=== PATIENT | male | born 1935 | race African-American/Black ===

== ENCOUNTER 2017-08-30 13:24 | Observation (INO) | payer OTHER ==
--- NOTE | 2017-08-30 14:26 | PDOC ---
History of Present Illness - General Chief Complaint: Syncope/Near Syncope Stated Complaint: SYNCOPE Time Seen by Provider: 08/30/17 13:49 - History of Present Illness Initial Comments: 08/30/17 14:19 81 M with seizure disorder (pt cannot recall what his other medical problems are but states that he had a pacemaker placed 5 months ago), presents to ER with syncopal episode. Pt was at [employer]undromat putting his clothes in a washer when he lost consciousness. He has no recollection of the event but states that the next thing he knows, he's waking up with EMS attending to him. He denies having any CP/SOB/palpitations prior to the event. Had no lightheadedness. When he awoke, he states that he felt like his normal self. Denies any period of confusion. Denies tongue biting, denies incontinence. Denies SANTIAGO/N/V. Denies neck pain. Denies weakness/numbness/tingling. Denies F/C. Past History - Past Medical History Allergies/Adverse Reactions: Allergies Allergy/AdvReac Type Severity Reaction Status Date / Time No Known Allergies Allergy Verified 08/30/17 13:52 Home Medications: Ambulatory Orders Tamsulosin HCl [Flomax] 0.4 mg PO DAILY 08/30/17 Aspirin Coated [Ecotrin -] 81 mg PO DAILY tablet.ec 09/02/17 Finasteride [Proscar] 5 mg PO DAILY #30 tablet 09/02/17 Phenytoin Na Extended [Dilantin -] 100 mg PO TID #100 capsule 09/02/17 Rosuvastatin [Crestor -] 20 mg PO HS #30 tablet 09/02/17 CVA: No COPD: No Seizures: Yes - Suicide/Smoking/Psychosocial Hx Smoking History: Never smoked Review of Systems - Review of Systems Comments:: 08/30/17 14:22 "GENERAL/CONSTITUTIONAL: No fever or chills. No weakness. HEAD, EYES, EARS, NOSE AND THROAT: No change in vision. No ear pain or discharge. No sore throat. CARDIOVASCULAR: No chest pain or shortness of breath. RESPIRATORY: No cough, wheezing, or hemoptysis. GASTROINTESTINAL: No nausea, vomiting, diarrhea or constipation. GENITOURINARY: No dysuria, frequency, or change in urination. MUSCULOSKELETAL: No joint or muscle swelling or pain. No neck or back pain. SKIN: No rash NEUROLOGIC: +LOC, No headache, vertigo, or change in strength/sensation. ENDOCRINE: No increased thirst. No abnormal weight change. HEMATOLOGIC/LYMPHATIC: No anemia, easy bleeding, or history of blood clots. ALLERGIC/IMMUNOLOGIC: No hives or skin allergy. " *Physical Exam - Vital Signs Last Vital Signs Temp Pulse Resp BP Pulse Ox 98.1 F 67 22 101/63 98 09/02/17 10:00 09/02/17 10:00 09/02/17 13:00 09/02/17 10:00 09/02/17 13:00 - Physical Exam Comments: 08/30/17 14:22 "GENERAL: Awake, alert, and fully oriented, in no acute distress HEAD: No signs of trauma EYES: PERRLA, EOMI, sclera anicteric, conjunctiva clear ENT: Auricles normal inspection, hearing grossly normal, nares patent, oropharynx clear without exudates. Moist mucosa NECK: Nontender, no stepoffs, Normal ROM, supple, no lymphadenopathy, JVD, or masses LUNGS: Breath sounds equal, clear to auscultation bilaterally. No wheezes, and no crackles HEART: Regular rate and rhythm, normal S1 and S2, no murmurs, rubs or gallops ABDOMEN: Soft, nontender, normoactive bowel sounds. No guarding, no rebound. No masses EXTREMITIES: Normal range of motion, no edema. No clubbing or cyanosis. No cords, erythema, or tenderness NEUROLOGICAL: Cranial nerves II through XII intact. 5/5 strength and sensation in all extremities, Normal speech, normal gait SKIN: Warm, Dry, normal turgor, no rashes or lesions noted. " ED Treatment Course - LABORATORY CBC & Chemistry Diagram: 09/02/17 06:00 09/02/17 06:00 - ADDITIONAL ORDERS Additional order review: 08/30/17 14:20 RBC 4.32 MCV 95.6 MCHC 32.4 RDW 14.3 MPV 7.7 Neutrophils % 59.0 Lymphocytes % 27.2 Monocytes % 12.4 H Eosinophils % 1.0 Basophils % 0.4 - RADIOLOGY Radiology Studies Ordered: Category Date Time Status HEAD CT WITHOUT CONTRAST [CT] Stat CT Scan 08/30/17 14:18 Completed CHEST PA & LAT [RAD] Stat Radiology 08/30/17 14:18 Completed - Medications Given in the ED: ED Medications Discontinued Medications Generic Name Dose Route Start Last Admin Trade Name Moon PRN Reason Stop Dose Admin Acetaminophen 650 mg 08/30/17 17:47 08/30/17 17:59 Tylenol - PO 08/30/17 17:48 650 mg ONCE ONE Administration Aspirin 81 mg 09/01/17 10:00 09/02/17 09:51 Ecotrin - PO 81 mg DAILY JASON Administration Finasteride 5 mg 08/31/17 10:00 09/02/17 09:51 Proscar - PO 5 mg DAILY JASON Administration Phenytoin Sodium 100 mg 08/30/17 22:00 09/02/17 06:47 Dilantin - PO 100 mg TID JASON Administration Rosuvastatin Calcium 20 mg 08/31/17 22:00 09/01/17 21:56 Crestor - PO 20 mg HS JASON Administration Tamsulosin HCl 0.4 mg 08/31/17 08:30 09/02/17 09:51 Flomax - PO 0.4 mg DAILY@0830 JASON Administration Medical Decision Making - Medical Decision Making 08/30/17 14:22 81 M with syncopal episode. Concerning for cardiac syncope given recent PPM placement as well as sudden LOC without prodrome. Pt does have seizure history but no signs of seizure on exam. Neurologically non-focal at this time. - Labs, trop - EKG - CXR 08/30/17 17:29 CBC,CMP WBC 3.4 K/mm3 (4.0-10.0) L 08/30/17 14:20 RBC 4.32 M/mm3 (4.00-5.60) 08/30/17 14:20 Hgb 13.4 GM/dL (11.7-16.9) 08/30/17 14:20 Hct 41.2 % (35.4-49) 08/30/17 14:20 MCV 95.6 fl (80-96) 08/30/17 14:20 MCH 31.0 pg (25.7-33.7) 08/30/17 14:20 MCHC 32.4 g/dl (32.0-35.9) 08/30/17 14:20 RDW 14.3 % (11.9-15.9) 08/30/17 14:20 Plt Count 123 K/MM3 (134-434) L 08/30/17 14:20 MPV 7.7 fl (7.5-11.1) 08/30/17 14:20 Neutrophils % 59.0 % (42.8-82.8) 08/30/17 14:20 Lymphocytes % 27.2 % (8-40) 08/30/17 14:20 Monocytes % 12.4 % (3.8-10.2) H 08/30/17 14:20 Eosinophils % 1.0 % (0-4.5) 08/30/17 14:20 Basophils % 0.4 % (0-2.0) 08/30/17 14:20 Sodium 141 mmol/L (136-145) 08/30/17 14:20 Potassium 3.9 mmol/L (3.5-5.1) 08/30/17 14:20 Chloride 105 mmol/L (98-107) 08/30/17 14:20 Carbon Dioxide 28 mmol/L (21-32) 08/30/17 14:20 Anion Gap 8 (8-16) 08/30/17 14:20 BUN 15 mg/dL (7-18) 08/30/17 14:20 Creatinine 0.9 mg/dL (0.7-1.3) 08/30/17 14:20 Creat Clearance w eGFR > 60 (>60) 08/30/17 14:20 Random Glucose 104 mg/dL (74-106) 08/30/17 14:20 Calcium 8.6 mg/dL (8.5-10.1) 08/30/17 14:20 Total Bilirubin 0.3 mg/dL (0.2-1.0) 08/30/17 14:20 AST 14 U/L (15-37) L 08/30/17 14:20 ALT 18 U/L (12-78) 08/30/17 14:20 Alkaline Phosphatase 90 U/L (45-117) 08/30/17 14:20 Creatine Kinase 136 IU/L (39-308) 08/30/17 14:20 Troponin I < 0.02 ng/ml (0.00-0.05) 08/30/17 14:20 B-Natriuretic Peptide 648.07 pg/ml (5-450) H 08/30/17 14:20 Total Protein 7.4 g/dl (6.4-8.2) 08/30/17 14:20 Albumin 3.7 g/dl (3.4-5.0) 08/30/17 14:20 CXR clear CTH negative Will admit to tele obs for monitoring and pacemaker interrogation. Case discussed in detail with admitting physician including history, physical exam and ancillary studies. Admitting physician has assumed care for the patient and will follow all pending diagnostics and complete the evaluation and treatment. *DC/Admit/Observation/Transfer Diagnosis at time of Disposition: Syncope Qualifiers: Syncope type: unspecified Qualified Code(s): R55 - Syncope and collapse - Discharge Dispostion Disposition: HOME Condition at time of disposition: Improved Admit: Yes - Prescriptions - Referrals - Patient Instructions - Post Discharge Activity - Attestations Physician Attestion: 08/30/17 17:30 I, Dr. Kamar Murphy MD, attest that this document has been prepared under my direction and personally reviewed by me in its entirety. I further attest, that it accurately reflects all work, treatment, procedures and medical decision -making performed by me.
[2017-08-30 14:40] LABS: BASO % 0.4 % (0-2.0); MCHC 32.4 g/dl (32.0-35.9); MEAN CELL VOLUME 95.6 fl (80-96); MEAN PLT VOLUME 7.7 fl (7.5-11.1); PLATELET COUNT 123 K/MM3 (134-434); RDW 14.3 % (11.9-15.9); WHITE BLOOD COUNT 3.4 K/mm3 (4.0-10.0)
[2017-08-30 15:03] LABS: INR 1.06 (0.82-1.09)
[2017-08-30 15:06] LABS: ACTIVATED PTT 29.5 SECONDS (26.9-34.4)
[2017-08-30 15:18] LABS: CO2 28 mmol/L (21-32); CREATININE 0.9 mg/dL (0.7-1.3); GLUCOSE,RANDOM 104 mg/dL (74-106)
[2017-08-30 15:19] LABS: ALBUMIN 3.7 g/dl (3.4-5.0); ANION GAP 8 (8-16); BILIRUBIN,TOTAL 0.3 mg/dL (0.2-1.0); CALCIUM 8.6 mg/dL (8.5-10.1); SGOT/AST 14 U/L (15-37); SGPT/ALT 18 U/L (12-78); TOT PROT 7.4 g/dl (6.4-8.2)
[2017-08-30 15:21] LABS: ALK PHOS 90 U/L (45-117); CPK 136 IU/L (39-308); TROPONIN I < 0.02 ng/ml (0.00-0.05)
[2017-08-30] MEDS ORDERED: ACETAMINOPHEN 325 MG TABLET (FP) PO ONE (17:47)
[2017-08-30] MEDS ORDERED: ACETAMINOPHEN 325 MG TABLET (FP) ONE (17:55)
--- NOTE | 2017-08-30 21:23 | HP ---
CHIEF COMPLAINT: LOC PCP: in Bx HISTORY OF PRESENT ILLNESS: This is an 81 year old male with a past medical history of repeated episodes of syncope s/p PPM placement 3 months ago who presented to the ED s/p sudden LOC while doing his laundry. Pt denies any prodrome. Pt states that he was just doing his laundry and then he woke up on the floor with EMS surrounding him. He denies any palpitations, dizziness, chest pain. His daughter reports that he has had syncopal episodes approximately 3 times per year for the past 5 years and has been completely worked up many times at [facility]. 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 Hodges. He was placed on dilantin for suspicion of seizure disorder. He has not followed up with cardiology since his PPM was placed. ER course was notable for: (1) Trop 0.02 (2) BNP 648.07 Recent Travel: pt denies PAST MEDICAL HISTORY: seizure d/o? BPH syncope PAST SURGICAL HISTORY: PPM placement 3 months ago Social History: lives alone Smoking: pt denies Alcohol: pt denies Drugs: pt denies Family History: mother , HTN father and brother , h/o HTN, BPH Allergies No Known Allergies Allergy (Verified 08/30/17 13:52) HOME MEDICATIONS: 3 Medication Instructions Recorded Phenytoin Na Extended [Dilantin -] 200 mg PO TID 08/30/17 Tamsulosin HCl [Flomax] 0.4 mg PO DAILY 08/30/17 finasteride REVIEW OF SYSTEMS CONSTITUTIONAL: Absent: fever, chills, diaphoresis, generalized weakness, malaise, loss of appetite, weight change HEENT: Absent: rhinorrhea, nasal congestion, throat pain, throat swelling, difficulty swallowing, mouth swelling, ear pain, eye pain, visual changes CARDIOVASCULAR: Absent: chest pain, syncope, palpitations, irregular heart rate, lightheadedness , peripheral edema RESPIRATORY: Absent: cough, shortness of breath, dyspnea with exertion, orthopnea, wheezing, stridor, hemoptysis GASTROINTESTINAL: Absent: abdominal pain, abdominal distension, nausea, vomiting, diarrhea, constipation, melena, hematochezia GENITOURINARY: Absent: dysuria, frequency, urgency, hesitancy, hematuria, flank pain, genital pain MUSCULOSKELETAL: Absent: myalgia, arthralgia, joint swelling, back pain, neck pain SKIN: Absent: rash, itching, pallor HEMATOLOGIC/IMMUNOLOGIC: Absent: easy bleeding, easy bruising, lymphadenopathy, frequent infections ENDOCRINE: Absent: unexplained weight gain, unexplained weight loss, heat intolerance, cold intolerance NEUROLOGIC: Present: LOC Absent: headache, focal weakness or paresthesias, dizziness, unsteady gait, seizure, mental status changes, bladder or bowel incontinence PSYCHIATRIC: Absent: anxiety, depression, suicidal or homicidal ideation, hallucinations. PHYSICAL EXAMINATION Vital Signs - 24 hr 3 08/30/17 08/30/17 08/30/17 08/30/17 13:54 17:48 17:49 19:33 Temperature 98.1 F 98.3 F Pulse Rate 61 Pulse Rate [ 62 60 Apical] Respiratory 20 20 20 Rate Blood Pressure 151/102 Blood Pressure 131/88 125/81 [Left Arm] O2 Sat by Pulse 100 100 100 99 Oximetry (%) GENERAL: Awake, alert, and fully oriented, in no acute distress. HEAD: Normal with no signs of trauma. EYES: Pupils equal, round and reactive to light, extraocular movements intact, sclera anicteric, conjunctiva clear. No lid lag. EARS, NOSE, THROAT: Ears normal, nares patent, oropharynx clear without exudates. Moist mucous membranes. NECK: Normal range of motion, supple without lymphadenopathy, JVD, or masses. LUNGS: Breath sounds equal, clear to auscultation bilaterally. No wheezes, and no crackles. No accessory muscle use. HEART: Regular rate and rhythm, normal S1 and S2 + murmur, rub or gallop. ABDOMEN: Soft, nontender, not distended, normoactive bowel sounds, no guarding, no rebound, no masses. No hepatomegaly or splenomegaly. MUSCULOSKELETAL: Normal range of motion at all joints. No bony deformities or tenderness. No CVA tenderness. UPPER EXTREMITIES: 2+ pulses, warm, well-perfused. No cyanosis. No clubbing. No peripheral edema. LOWER EXTREMITIES: 2+ pulses, warm, well-perfused. No calf tenderness. No peripheral edema. NEUROLOGICAL: Cranial nerves II-XII intact. Normal speech. Normal gait. PSYCHIATRIC: Cooperative. Good eye contact. Appropriate mood and affect. SKIN: Warm, dry, normal turgor, no rashes or lesions noted, normal capillary refill. Laboratory Results - last 24 hr 3 08/30/17 08/30/17 08/30/17 14:20 14:20 14:20 WBC 3.4 L RBC 4.32 Hgb 13.4 Hct 41.2 MCV 95.6 MCH 31.0 MCHC 32.4 RDW 14.3 Plt Count 123 L MPV 7.7 Neutrophils % 59.0 Lymphocytes % 27.2 Monocytes % 12.4 H Eosinophils % 1.0 Basophils % 0.4 PT with INR 12.00 H INR 1.06 PTT (Actin FS) 29.5 Sodium 141 Potassium 3.9 Chloride 105 Carbon Dioxide 28 Anion Gap 8 BUN 15 Creatinine 0.9 Creat Clearance w eGFR > 60 Random Glucose 104 Calcium 8.6 Total Bilirubin 0.3 AST 14 L ALT 18 Alkaline Phosphatase 90 Creatine Kinase 136 Troponin I < 0.02 B-Natriuretic Peptide 648.07 H Total Protein 7.4 Albumin 3.7 ECG Atrial paced rhythm with prolonged AV conduction with frequent PVC Vent rate 72, QTC 481 nonspecific intraventricular block ASSESSMENT/PLAN: 81yM with PMH syncope, seizure d/o, BPH presented to the ED s/p sudden onset LOC. LOC - h/o multiple syncopal episodes, workup completed in past at [facility] - Monitor on tele - trend trops - cardiology consult-family requesting [facility] [place] [facility] BPH - cont home meds seizure d/o - will check dilantin level, cont 100 TID as per home dose--verified with pt pharmacy DVT PPX - deferred given expected LOS <48h FEN - tolerating po - BMP in am - regular diet as tolerated Dispo : Pt currently requires cardiac monitoring for his emergent condition and is admitted to observation status. Visit type - Emergency Visit Emergency Visit: Yes ED Registration Date: 08/30/17 Care time: The patient presented to the Emergency Department on the above date and was hospitalized for further evaluation of their emergent condition. - New Patient This patient is new to me today: Yes Date on this admission: 08/30/17 - Critical Care Critical Care patient: No
[2017-08-30] MEDS: PHENYTOIN NA EXTENDED 100 MG CAPSULE (FP) PO SCH (22:50)
[2017-08-31 02:12] VITALS: BMI 22.9
[2017-08-31] MEDS: PHENYTOIN NA EXTENDED 100 MG CAPSULE (FP) PO SCH ×3 (06:49→22:03)
[2017-08-31 07:12] LABS: BASO % 0.5 % (0-2.0); EOS % 0.8 % (0-4.5); MCH 31.4 pg (25.7-33.7); MCHC 33.1 g/dl (32.0-35.9); MEAN CELL VOLUME 94.9 fl (80-96); MEAN PLT VOLUME 8.3 fl (7.5-11.1); NEUT % 51.5 % (42.8-82.8); PLATELET COUNT 118 K/MM3 (134-434); RDW 14.1 % (11.9-15.9); WHITE BLOOD COUNT 3.4 K/mm3 (4.0-10.0)
[2017-08-31 07:33] LABS: ANION GAP 9 (8-16); CALCIUM 8.4 mg/dL (8.5-10.1); CO2 25 mmol/L (21-32); CREATININE 0.8 mg/dL (0.7-1.3); GLUCOSE,RANDOM 75 mg/dL (74-106); MAGNESIUM 1.9 mg/dL (1.8-2.4); PHOSPHOROUS 3.4 mg/dL (2.5-4.9)
[2017-08-31 07:35] LABS: TROPONIN I 0.02 ng/ml (0.00-0.05)
[2017-08-31] MEDS: TAMSULOSIN HCL 0.4 MG CAP.ER.24H (FP) PO SCH (08:32)
[2017-08-31] MEDS: FINASTERIDE 5 MG TABLET (FP) PO SCH (09:04)
--- NOTE | 2017-08-31 10:09 | PN ---
Physical Exam: SUBJECTIVE: Patient seen and examined with his daughter at the bedside. Patient is anxious, but in no acute distress. Poor medication historian. OBJECTIVE: Syncope may be due to cardiac component vs. seizure disorder Patient does not recall home doses of dilantin meds, but states he takes it three times per day Daughter in room and concerned over her father's repeated syncope. Will order PT Head CT scan negative Phentoin 4.9 Vital Signs Period Temp Pulse Resp BP Sys/Mckeon Pulse Ox Last 24 Hr 97.9 F-99.2 F 60-63 18-20 103-151/69-102 99-100 GENERAL: The patient is awake, alert, and fully oriented, in no acute distress. HEAD: Normal with no signs of trauma. EYES: PERRL, extraocular movements intact, sclera anicteric, conjunctiva clear. No ptosis. ENT: Ears normal, nares patent, oropharynx clear without exudates, moist mucous membranes. NECK: Trachea midline, full range of motion, supple. LUNGS: Breath sounds equal, clear to auscultation bilaterally, no wheezes, no crackles, no accessory muscle use. HEART: Paced 80s, ABDOMEN: Soft, nontender, nondistended, normoactive bowel sounds, no guarding, no rebound, no hepatosplenomegaly, no masses. EXTREMITIES: no edema. NEUROLOGICAL: Normal speech, gait not observed. PSYCH: Normal mood, normal affect. SKIN: Warm, dry, normal turgor, no rashes or lesions noted Laboratory Results - last 24 hr 08/30/17 08/30/17 08/30/17 14:20 14:20 14:20 WBC 3.4 L RBC 4.32 Hgb 13.4 Hct 41.2 MCV 95.6 MCH 31.0 MCHC 32.4 RDW 14.3 Plt Count 123 L MPV 7.7 Neutrophils % 59.0 Lymphocytes % 27.2 Monocytes % 12.4 H Eosinophils % 1.0 Basophils % 0.4 PT with INR 12.00 H INR 1.06 PTT (Actin FS) 29.5 Sodium 141 Potassium 3.9 Chloride 105 Carbon Dioxide 28 Anion Gap 8 BUN 15 Creatinine 0.9 Creat Clearance w eGFR > 60 Random Glucose 104 Calcium 8.6 Phosphorus Magnesium Total Bilirubin 0.3 AST 14 L ALT 18 Alkaline Phosphatase 90 Creatine Kinase 136 Troponin I < 0.02 B-Natriuretic Peptide 648.07 H Total Protein 7.4 Albumin 3.7 Phenytoin 08/30/17 08/30/17 08/31/17 14:20 21:45 05:05 WBC 3.4 L RBC 3.86 L Hgb 12.1 Hct 36.6 MCV 94.9 MCH 31.4 MCHC 33.1 RDW 14.1 Plt Count 118 L MPV 8.3 Neutrophils % 51.5 Lymphocytes % 35.2 D Monocytes % 12.0 H Eosinophils % 0.8 Basophils % 0.5 PT with INR INR PTT (Actin FS) Sodium Cancelled Potassium Cancelled Chloride Cancelled Carbon Dioxide Cancelled Anion Gap Cancelled BUN Cancelled Creatinine Cancelled Creat Clearance w eGFR Cancelled Random Glucose Cancelled Calcium Cancelled Phosphorus Magnesium Total Bilirubin Cancelled AST Cancelled ALT Cancelled Alkaline Phosphatase Cancelled Creatine Kinase Troponin I < 0.02 B-Natriuretic Peptide Total Protein Cancelled Albumin Cancelled Phenytoin 08/31/17 08/31/17 05:05 05:05 WBC RBC Hgb Hct MCV MCH MCHC RDW Plt Count MPV Neutrophils % Lymphocytes % Monocytes % Eosinophils % Basophils % PT with INR INR PTT (Actin FS) Sodium 141 Potassium 4.3 Chloride 107 Carbon Dioxide 25 Anion Gap 9 BUN 14 Creatinine 0.8 Creat Clearance w eGFR Random Glucose 75 D Calcium 8.4 L Phosphorus 3.4 Magnesium 1.9 Total Bilirubin AST ALT Alkaline Phosphatase Creatine Kinase Troponin I 0.02 B-Natriuretic Peptide Total Protein Albumin Phenytoin 4.9 L Active Medications Generic Name Dose Route Start Last Admin Trade Name Freq PRN Reason Stop Dose Admin Finasteride 5 mg 08/31/17 10:00 08/31/17 09:04 Proscar - PO 5 mg DAILY JASON Administration Phenytoin Sodium 100 mg 08/30/17 22:00 08/31/17 06:49 Dilantin - PO 100 mg TID JASON Administration Tamsulosin HCl 0.4 mg 08/31/17 08:30 08/31/17 08:32 Flomax - PO 0.4 mg DAILY@0830 [facility] Administration ASSESSMENT/PLAN: Patient is an 81 year old male with a significant past medical history of syncope s/p PPM placement 3 months ago and 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 He presented to the ED on 08/30/2017 with a sudden loss of consciousness while attempting to do his laundry. Pt states that he was just doing his laundry and then he woke up on the floor with EMS surrounding him. He denies any palpitations, dizziness, chest pain. His daughter reports that he has had syncopal episodes approximately 3 times per year for the past 5 years and has been completely worked up many times at [facility]. He was placed on dilantin for suspicion of seizure disorder. He has not followed up with cardiology since his PPM was placed 3 months ago. Labs noted: elevated lipid panel (ch 234, LDL 122, HDL 86), hmg a1c 6.2, borderline low platelets @118, phentoin 4.9. Imaging: Head CT: no acute ICH generalized age related volume loss with severe microvascular ischemic changes Syncope: Cardiac component vs. Neuro related/seizures Monitor on tele cardiology consulted trops negative x 3 denies chest pain or shortness of breath Monitor vitals, labs On home dilantiin for hx of seizure disorder Phenytoin levels subtherapeutic, unclear if it may be due to noncompliance TSH wnl Echo and carotid ordered Neuro and cardiology consulted Hyperlipidemia, acute elevated lipid panel Start on Crestor Endocrine: hmga1c 6.2, borderline dm Outpatient follow up Monitor daily blood levels : Neuropathic bladder On Flomax UA and UC ordered F.E.N. Fluids: PO intake adequate Electrolytes: monitor Nutrition: low sodium Prophylaxis: DVT: SCDs, ambulation with assistance GI: deferred for now Physical therapy Disposition. full code. Visit type - Emergency Visit Emergency Visit: Yes ED Registration Date: 08/30/17 Care time: The patient presented to the Emergency Department on the above date and was hospitalized for further evaluation of their emergent condition. - New Patient This patient is new to me today: Yes Date on this admission: 08/31/17 - Critical Care Critical Care patient: No - Discharge Referral Referred to [facility] No
--- NOTE | 2017-08-31 11:53 | CONSULT ---
Consult - text type - Consultation Consultation Note: Neurology CHIEF COMPLAINT: LOC HISTORY OF PRESENT ILLNESS: This is an 81 year old male with a past medical history of syncope s/p PPM placement 3 months ago who presented to the ED s/p sudden LOC while doing his laundry. He denied any consulsive activity and no history of seizures. There was no symptoms preceeding the syncopal event. Reportedly, he was just doing his laundry and then he woke up on the floor with EMS surrounding him. He denies any palpitations, dizziness, chest pain. His daughter reports that he has had syncopal episodes approximately 3 times per year for the past 5 years and has been completely worked up many times at [facility]. He was placed on dilantin for suspicion of seizure disorder. He has not followed up with cardiology since his PPM was placed. Cardiology consulted for this admission. CT head completed and did not show acute changes. Neurologically, is asymptomatic and it is unclear to me that he would need to be Dilantin, but I would not withdraw at this time. PAST MEDICAL HISTORY: seizure d/o? BPH syncope PAST SURGICAL HISTORY: PPM placement 3 months ago Social History: lives alone Smoking: pt denies Alcohol: pt denies Drugs: pt denies Family History: mother , HTN father and brother , h/o HTN, BPH Allergies No Known Allergies Allergy (Verified 08/30/17 13:52) HOME MEDICATIONS: 3 Medication Instructions Recorded Phenytoin Na Extended [Dilantin -] 200 mg PO TID 08/30/17 Tamsulosin HCl [Flomax] 0.4 mg PO DAILY 08/30/17 finasteride REVIEW OF SYSTEMS CONSTITUTIONAL: Absent: fever, chills, diaphoresis, generalized weakness, malaise, loss of appetite, weight change HEENT: Absent: rhinorrhea, nasal congestion, throat pain, throat swelling, difficulty swallowing, mouth swelling, ear pain, eye pain, visual changes CARDIOVASCULAR: Absent: chest pain, syncope, palpitations, irregular heart rate, lightheadedness , peripheral edema RESPIRATORY: Absent: cough, shortness of breath, dyspnea with exertion, orthopnea, wheezing, stridor, hemoptysis GASTROINTESTINAL: Absent: abdominal pain, abdominal distension, nausea, vomiting, diarrhea, constipation, melena, hematochezia GENITOURINARY: Absent: dysuria, frequency, urgency, hesitancy, hematuria, flank pain, genital pain MUSCULOSKELETAL: Absent: myalgia, arthralgia, joint swelling, back pain, neck pain SKIN: Absent: rash, itching, pallor HEMATOLOGIC/IMMUNOLOGIC: Absent: easy bleeding, easy bruising, lymphadenopathy, frequent infections ENDOCRINE: Absent: unexplained weight gain, unexplained weight loss, heat intolerance, cold intolerance NEUROLOGIC: Present: LOC Absent: headache, focal weakness or paresthesias, dizziness, unsteady gait, seizure, mental status changes, bladder or bowel incontinence PSYCHIATRIC: Absent: anxiety, depression, suicidal or homicidal ideation, hallucinations. PHYSICAL EXAMINATION Vital Signs Temperature 98.7 F 08/31/17 08:00 Pulse Rate 71 08/31/17 08:00 Respiratory Rate 18 08/31/17 08:00 Blood Pressure 119/69 08/31/17 08:00 O2 Sat by Pulse Oximetry (%) 98 08/31/17 08:00 GENERAL: Awake, alert, and fully oriented, in no acute distress. HEAD: Normal with no signs of trauma. EYES: Pupils equal, round and reactive to light, extraocular movements intact, sclera anicteric, conjunctiva clear. No lid lag. EARS, NOSE, THROAT: Ears normal, nares patent, oropharynx clear without exudates. Moist mucous membranes. NECK: Normal range of motion, supple without lymphadenopathy, JVD, or masses. LUNGS: Breath sounds equal, clear to auscultation bilaterally. No wheezes, and no crackles. No accessory muscle use. HEART: Regular rate and rhythm, normal S1 and S2 + murmur, rub or gallop. ABDOMEN: Soft, nontender, not distended, normoactive bowel sounds, no guarding, no rebound, no masses. No hepatomegaly or splenomegaly. MUSCULOSKELETAL: Normal range of motion at all joints. No bony deformities or tenderness. No CVA tenderness. UPPER EXTREMITIES: 2+ pulses, warm, well-perfused. No cyanosis. No clubbing. No peripheral edema. LOWER EXTREMITIES: 2+ pulses, warm, well-perfused. No calf tenderness. No peripheral edema. NEUROLOGICAL: Cranial nerves II-XII intact. Normal speech. No significant weakness. Sensory intact, finger to nose normal PSYCHIATRIC: Cooperative. Good eye contact. Appropriate mood and affect. SKIN: Warm, dry, normal turgor, no rashes or lesions noted, normal capillary refill. CBCD WBC 3.4 K/mm3 (4.0-10.0) L 08/31/17 05:05 RBC 3.86 M/mm3 (4.00-5.60) L 08/31/17 05:05 Hgb 12.1 GM/dL (11.7-16.9) 08/31/17 05:05 Hct 36.6 % (35.4-49) 08/31/17 05:05 MCV 94.9 fl (80-96) 08/31/17 05:05 MCHC 33.1 g/dl (32.0-35.9) 08/31/17 05:05 RDW 14.1 % (11.9-15.9) 08/31/17 05:05 Plt Count 118 K/MM3 (134-434) L 08/31/17 05:05 MPV 8.3 fl (7.5-11.1) 08/31/17 05:05 CMP Sodium 141 mmol/L (136-145) 08/31/17 05:05 Potassium 4.3 mmol/L (3.5-5.1) 08/31/17 05:05 Chloride 107 mmol/L (98-107) 08/31/17 05:05 Carbon Dioxide 25 mmol/L (21-32) 08/31/17 05:05 Anion Gap 9 (8-16) 08/31/17 05:05 BUN 14 mg/dL (7-18) 08/31/17 05:05 Creatinine 0.8 mg/dL (0.7-1.3) 08/31/17 05:05 Creat Clearance w eGFR > 60 (>60) 08/30/17 14:20 Calcium 8.4 mg/dL (8.5-10.1) L 08/31/17 05:05 Total Bilirubin 0.3 mg/dL (0.2-1.0) 08/30/17 14:20 AST 14 U/L (15-37) L 08/30/17 14:20 ALT 18 U/L (12-78) 08/30/17 14:20 Alkaline Phosphatase 90 U/L (45-117) 08/30/17 14:20 Total Protein 7.4 g/dl (6.4-8.2) 08/30/17 14:20 Albumin 3.7 g/dl (3.4-5.0) 08/30/17 14:20 CT head reviewed ASSESSMENT/PLAN: 81 year old male with a past medical history of syncope s/p PPM placement 3 months ago who presented to the ED s/p sudden LOC while doing his laundry. He denied any consulsive activity and no history of seizures. There was no symptoms preceeding the syncopal event. Reportedly, he was just doing his laundry and then he woke up on the floor with EMS surrounding him. He denies any palpitations, dizziness, chest pain. His daughter reports that he has had syncopal episodes approximately 3 times per year for the past 5 years and has been completely worked up many times at [facility]. He was placed on dilantin for suspicion of seizure disorder. He has not followed up with cardiology since his PPM was placed. Cardiology consulted for this admission. CT head completed and did not show acute changes. Neurologically, is asymptomatic and it is unclear to me that he would need to be Dilantin, but I would not withdraw at this time. Cannot have MRI 2/2 PPM, CT head without significant changes and remains asymptomatic at this time. May benefit from telemetry monitoring, cardiology work up. Continue Dilantin 100mg three times daily for now, though I would consider eventual taper as outpatient. Maintain PO hydration and intake. Monitor for orthostatics. Monitor blood pressure. Fall precautions. DVT ppx.
--- NOTE | 2017-08-31 12:28 | CON.CARD ---
Consult Consult Specialty:: Cardiology Referred by:: Hospitalist Reason for Consultation:: Cardiac evaluation - History of Present Illness Chief Complaint: Syncope History of Present Illness: Patient is an 81 year old male with underlying history of pacemaker implantation 3 months ago [follows with Dr. 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 He was at a laundromat putting his clothes into the washer when he lost consciousness. He does not remember the event and remembers seeing EMS attending to him. He denies chest pain, shortness of breath or palpitations. He denies paroxysmal nocturnal dyspnea or orthopnea. He denies fever or chills. He denies headache or lightheadedness at this time. Denies weakness or numbness on his extremities. He states he has had previous syncopes. Cardiology consultation was called for further evaluation. He was placed on Dilantin for possible seizure, but the indication is unclear. - History Source History Provided By: Patient, Medical Record Limitations to Obtaining History: Poor Historian - Past Medical History Cardio/Vascular: Yes: Other (Pacemaker implantation (patient is not sure which company)) - Past Surgical History Past Surgical History: Yes: Permanent Pacemaker - Alcohol/Substance Use Hx Alcohol Use: No - Smoking History Smoking history: Never smoked Home Medications - Allergies Allergies/Adverse Reactions: Allergies Allergy/AdvReac Type Severity Reaction Status Date / Time No Known Allergies Allergy Verified 08/30/17 13:52 - Home Medications Home Medications: Ambulatory Orders Phenytoin Na Extended [Dilantin -] 200 mg PO TID 08/30/17 Tamsulosin HCl [Flomax] 0.4 mg PO DAILY 08/30/17 Review of Systems - Review of Systems Constitutional: denies: Chills, Fever Cardiovascular: denies: Chest Pain, Palpitations, Shortness of Breath Respiratory: denies: Cough, Hemoptysis, Orthopnea, PND, SOB, SOB on Exertion Gastrointestinal: denies: Abdominal Pain, Constipation, Diarrhea, Melena, Nausea , Rectal Bleeding, Vomiting Neurological: reports: Syncope. denies: Confusion, Dizziness, Numbness, Parasthesia, Weakness Vital Signs: Vital Signs Temperature 98.7 F 08/31/17 08:00 Pulse Rate 71 08/31/17 08:00 Respiratory Rate 18 08/31/17 08:00 Blood Pressure 119/69 08/31/17 08:00 O2 Sat by Pulse Oximetry (%) 98 08/31/17 08:00 Eyes: Yes: PERRL HENT: Yes: Atraumatic Neck: Yes: Supple Respiratory: Yes: CTA Bilaterally Gastrointestinal: Yes: Normal Bowel Sounds, Soft. No: Tenderness Cardiovascular: Yes: Regular Rate and Rhythm JVD: No Carotid Bruit: No PMI: Non-Displaced Heart Sounds: Yes: S1, S2. No: Gallop Murmur: No: Systolic Murmur Edema: No - Other Data Labs, Other Data: CBC, BMP 08/31/17 05:05 08/31/17 05:05 INR, PTT INR 1.06 (0.82-1.09) 08/30/17 14:20 Troponin, BNP 08/30/17 08/30/17 08/31/17 14:20 21:45 05:05 Troponin I < 0.02 < 0.02 0.02 B-Natriuretic Peptide 648.07 H Demand atrial and ventricular paced Imaging - Results Chest X-ray: Report Reviewed (Cardiomegaly) Cat Scan: Report Reviewed (Head CT noted) Ultrasound: Report Reviewed (Carotid US unremarkable) EKG: Report Reviewed Problem List - Problems (1) Hypercholesterolemia Code(s): E78.00 - PURE HYPERCHOLESTEROLEMIA, UNSPECIFIED (2) Presence of permanent cardiac pacemaker Code(s): Z95.0 - PRESENCE OF CARDIAC PACEMAKER (3) Sick sinus syndrome Code(s): I49.5 - SICK SINUS SYNDROME (4) Syncope Code(s): R55 - SYNCOPE AND COLLAPSE Qualifiers: Syncope type: unspecified Qualified Code(s): R55 - Syncope and collapse Assessment/Plan 1. Syncope, etiology to be determined 2. Post pacemaker implantation 3. Hypercholesterolemia 4. ? Seizure PLAN: 1. Neuro input noted. 2. Currently on Crestor 3. Find out which pacemaker company device patient has and will need to interrogate the device 4. Transthoracic echocardiography to assess LV/RV and valvular function Further plans are to follow Wilfred Aguilera MD
[2017-08-31 12:43] LABS: THYROID STIMULATING HORMONE 1.68 uIU/ml (0.358-3.74)
[2017-08-31] MEDS: ROSUVASTATIN CA 20 MG TABLET (FP) PO SCH (22:03)
[2017-09-01] MEDS: PHENYTOIN NA EXTENDED 100 MG CAPSULE (FP) PO SCH ×3 (06:17→21:56)
[2017-09-01 09:11] LABS: BASO % 0.3 % (0-2.0); EOS % 1.3 % (0-4.5); MCH 31.3 pg (25.7-33.7); MCHC 33.1 g/dl (32.0-35.9); MEAN CELL VOLUME 94.7 fl (80-96); MEAN PLT VOLUME 8.3 fl (7.5-11.1); NEUT % 41.8 % (42.8-82.8); PLATELET COUNT 120 K/MM3 (134-434); WHITE BLOOD COUNT 3.3 K/mm3 (4.0-10.0)
[2017-09-01 09:42] LABS: ALBUMIN 3.2 g/dl (3.4-5.0); ALK PHOS 79 U/L (45-117); ANION GAP 7 (8-16); BILIRUBIN,TOTAL 0.6 mg/dL (0.2-1.0); CO2 27 mmol/L (21-32); CREATININE 0.9 mg/dL (0.7-1.3); GLUCOSE,RANDOM 84 mg/dL (74-106); SGOT/AST 13 U/L (15-37); SGPT/ALT 16 U/L (12-78); TOT PROT 6.4 g/dl (6.4-8.2)
[2017-09-01] MEDS: FINASTERIDE 5 MG TABLET (FP) PO SCH (10:04)
[2017-09-01] MEDS: ASPIRIN COATED 81 MG TABLET.EC PO SCH (10:04)
[2017-09-01] MEDS: TAMSULOSIN HCL 0.4 MG CAP.ER.24H (FP) PO SCH (10:05)
[2017-09-01 10:10] LABS: URINE APPEARANCE CLEAR; URINE BILIRUBIN NEGATIVE (NEGATIVE); URINE BLOOD NEGATIVE (NEGATIVE); URINE COLOR LTYELLOW; URINE GLUCOSE (UA) NEGATIVE (NEGATIVE); URINE KETONE NEGATIVE (NEGATIVE); URINE NITRITE NEGATIVE (NEGATIVE); URINE PROTEIN NEGATIVE (NEGATIVE); URINE UROBILINOGEN NEGATIVE mg/dL (0.2-1.0)
--- NOTE | 2017-09-01 10:15 | PN ---
Progress Note, Physician Chief Complaint: Events noted wants to go home History of Present Illness: Patient was seen and examined. Awake and alert. Chart was reviewed Denies chest pain, SOB or palpitations Patient has Biotronik pacemaker - Current Medication List Current Medications: Active Medications Aspirin (Ecotrin -) 81 mg PO DAILY [facility] Last Admin: 09/01/17 10:04 Dose: 81 mg Finasteride (Proscar -) 5 mg PO DAILY [facility] Last Admin: 09/01/17 10:04 Dose: 5 mg Phenytoin Sodium (Dilantin -) 100 mg PO TID [facility] Last Admin: 09/01/17 06:17 Dose: 100 mg Rosuvastatin Calcium (Crestor -) 20 mg PO HS [facility] Last Admin: 08/31/17 22:03 Dose: 20 mg Tamsulosin HCl (Flomax -) 0.4 mg PO DAILY@0830 [facility] Last Admin: 09/01/17 10:05 Dose: 0.4 mg - Objective Vital Signs: Vital Signs Temperature 98.7 F 09/01/17 06:00 Pulse Rate 63 09/01/17 06:00 Respiratory Rate 20 09/01/17 06:00 Blood Pressure 125/64 09/01/17 06:00 O2 Sat by Pulse Oximetry (%) 96 09/01/17 05:00 Eyes: Yes: PERRL HENT: Yes: Atraumatic Neck: Yes: Supple Cardiovascular: Yes: Regular Rate and Rhythm, S1, S2 Respiratory: Yes: CTA Bilaterally Gastrointestinal: Yes: Normal Bowel Sounds, Soft. No: Tenderness Edema: No Additional Findings/Remarks: - Review of Systems Constitutional: denies: Chills, Fever Cardiovascular: denies: Chest Pain, Palpitations, Shortness of Breath Respiratory: denies: Cough, Hemoptysis, Orthopnea, PND, SOB, SOB on Exertion Gastrointestinal: denies: Abdominal Pain, Constipation, Diarrhea, Melena, Nausea , Rectal Bleeding, Vomiting Neurological: reports: Syncope. denies: Confusion, Dizziness, Numbness, Parasthesia, Weakness Labs: CBC, BMP 09/01/17 07:00 09/01/17 07:00 INR, PTT INR 1.06 (0.82-1.09) 08/30/17 14:20 Problem List - Problems (1) Hypercholesterolemia Code(s): E78.00 - PURE HYPERCHOLESTEROLEMIA, UNSPECIFIED (2) Presence of permanent cardiac pacemaker Code(s): Z95.0 - PRESENCE OF CARDIAC PACEMAKER (3) Sick sinus syndrome Code(s): I49.5 - SICK SINUS SYNDROME (4) Syncope Code(s): R55 - SYNCOPE AND COLLAPSE Qualifiers: Syncope type: unspecified Qualified Code(s): R55 - Syncope and collapse Assessment/Plan 1. Syncope, etiology to be determined, vasovagal vs. Neurocardiogenic 2. Post pacemaker implantation (Biotronik) 3. Hypercholesterolemia 4. Doubt seizure per Neuro PLAN: 1. Neuro input noted. 2. Currently on Crestor 3. Arrange for pacemaker interrogation with Biotronik 4. Transthoracic echocardiography to assess LV/RV and valvular function in AM if agreeable Further plans are to follow and remainder of cardiac work up can be done as outpatient. Wilfred Aguilera MD
[2017-09-01 10:16] LABS: URINE LEUK ESTERASE 1+ (NEGATIVE)
[2017-09-01 10:25] LABS: URINE MUCUS RARE; URINE RBC 6 /hpf (0-3); URINE WBC 29 /hpf (3-5)
--- NOTE | 2017-09-01 10:28 | DS ---
Physical Exam: SUBJECTIVE: Patient seen and examined OBJECTIVE: Vital Signs Period Temp Pulse Resp BP Sys/Mckeon Pulse Ox Last 24 Hr 98.6 F-99.5 F 60-68 20-20 103-125/42-75 96-96 PHYSICAL EXAM GENERAL: The patient is awake, alert, and fully oriented, in no acute distress. HEAD: Normal with no signs of trauma. EYES: PERRL, extraocular movements intact, sclera anicteric, conjunctiva clear. ENT: Ears normal, nares patent, oropharynx clear without exudates, moist mucous membranes. NECK: Trachea midline, full range of motion, supple. LUNGS: Breath sounds equal, clear to auscultation bilaterally, no wheezes, no crackles, no accessory muscle use. HEART: Regular rate and rhythm, S1, S2 without murmur, rub or gallop. ABDOMEN: Soft, nontender, nondistended, normoactive bowel sounds, no guarding, no rebound, no hepatosplenomegaly, no masses. EXTREMITIES: 2+ pulses, warm, well-perfused, no edema. NEUROLOGICAL: Cranial nerves II through XII grossly intact. Normal speech, gait not observed. PSYCH: Normal mood, normal affect. SKIN: Warm, dry, normal turgor, no rashes or lesions noted. LABS Laboratory Results - last 24 hr 08/31/17 08/31/17 09/01/17 10:32 10:32 05:35 WBC RBC Hgb Hct MCV MCH MCHC RDW Plt Count MPV Neutrophils % Lymphocytes % Monocytes % Eosinophils % Basophils % Sodium Potassium Chloride Carbon Dioxide Anion Gap BUN Creatinine Creat Clearance w eGFR Random Glucose Hemoglobin A1c % 6.2 H Calcium Total Bilirubin AST ALT Alkaline Phosphatase Total Protein Albumin Triglycerides 75 Cholesterol 234 H Total LDL Cholesterol 122 H HDL Cholesterol 86 H TSH 1.68 Urine Color Ltyellow Urine Appearance Clear Urine pH 6.0 Ur Specific Jermyn 1.018 Urine Protein Negative Urine Glucose (UA) Negative Urine Ketones Negative Urine Blood Negative Urine Nitrite Negative Urine Bilirubin Negative Urine Urobilinogen Negative Urine WBC (Auto) 29 Urine RBC (Auto) 6 Ur Epithelial Cells Rare Urine Mucus Rare 09/01/17 09/01/17 07:00 07:00 WBC 3.3 L RBC 4.03 Hgb 12.6 Hct 38.1 MCV 94.7 MCH 31.3 MCHC 33.1 RDW 14.0 Plt Count 120 L MPV 8.3 Neutrophils % 41.8 L Lymphocytes % 43.4 H D Monocytes % 13.2 H Eosinophils % 1.3 Basophils % 0.3 Sodium 141 Potassium 4.1 Chloride 107 Carbon Dioxide 27 Anion Gap 7 L BUN 13 Creatinine 0.9 Creat Clearance w eGFR > 60 Random Glucose 84 Hemoglobin A1c % Calcium 8.0 L Total Bilirubin 0.6 D AST 13 L ALT 16 Alkaline Phosphatase 79 Total Protein 6.4 Albumin 3.2 L Triglycerides Cholesterol Total LDL Cholesterol HDL Cholesterol TSH Urine Color Urine Appearance Urine pH Ur Specific Jermyn Urine Protein Urine Glucose (UA) Urine Ketones Urine Blood Urine Nitrite Urine Bilirubin Urine Urobilinogen Urine WBC (Auto) Urine RBC (Auto) Ur Epithelial Cells Urine Mucus HOSPITAL COURSE: Date of Admission:08/30/17 Date of Discharge: 09/01/17 Discharge Summary Reason For Visit: SYNCOPE Current Active Problems Hypercholesterolemia (Acute) Presence of permanent cardiac pacemaker (Acute) Sick sinus syndrome (Acute) Syncope (Acute) - Instructions - Home Medications Comprehensive Discharge Medication List: Ambulatory Orders Phenytoin Na Extended [Dilantin -] 200 mg PO TID 08/30/17 Tamsulosin HCl [Flomax] 0.4 mg PO DAILY 08/30/17 - Discharge Referral [facility]erred to [facility] Med P.C.: No
--- NOTE | 2017-09-01 12:14 | PN ---
Progress Note (short form) - Note Progress Note: Neurology HISTORY OF PRESENT ILLNESS: This is an 81 year old male with a past medical history of syncope s/p PPM placement 3 months ago who presented to the ED s/p sudden LOC while doing his laundry. He denied any consulsive activity and no history of seizures. There was no symptoms preceeding the syncopal event. Reportedly, he was just doing his laundry and then he woke up on the floor with EMS surrounding him. He denies any palpitations, dizziness, chest pain. His daughter reports that he has had syncopal episodes approximately 3 times per year for the past 5 years and has been completely worked up many times at [facility]. He was placed on dilantin for suspicion of seizure disorder. He has not followed up with cardiology since his PPM was placed. Cardiology consulted for this admission. CT head completed and did not show acute changes. Neurologically, is asymptomatic and it is unclear to me that he would need to be Dilantin, but I would not withdraw at this time. Has been stable and CD without significant stenosis. Patient for discharge. Active Medications Aspirin (Ecotrin -) 81 mg PO DAILY [facility] Last Admin: 09/01/17 10:04 Dose: 81 mg Finasteride (Proscar -) 5 mg PO DAILY [facility] Last Admin: 09/01/17 10:04 Dose: 5 mg Phenytoin Sodium (Dilantin -) 100 mg PO TID [facility] Last Admin: 09/01/17 06:17 Dose: 100 mg Rosuvastatin Calcium (Crestor -) 20 mg PO HS [facility] Last Admin: 08/31/17 22:03 Dose: 20 mg Tamsulosin HCl (Flomax -) 0.4 mg PO DAILY@0830 [facility] Last Admin: 09/01/17 10:05 Dose: 0.4 mg PHYSICAL EXAMINATION Vital Signs Temperature 98.2 F 09/01/17 10:00 Pulse Rate 77 09/01/17 10:00 Respiratory Rate 20 09/01/17 10:00 Blood Pressure 110/87 09/01/17 10:00 O2 Sat by Pulse Oximetry (%) 96 09/01/17 05:00 GENERAL: Awake, alert, and fully oriented, in no acute distress. HEAD: Normal with no signs of trauma. EYES: Pupils equal, round and reactive to light, extraocular movements intact, sclera anicteric, conjunctiva clear. No lid lag. EARS, NOSE, THROAT: Ears normal, nares patent, oropharynx clear without exudates. Moist mucous membranes. NECK: Normal range of motion, supple without lymphadenopathy, JVD, or masses. LUNGS: Breath sounds equal, clear to auscultation bilaterally. No wheezes, and no crackles. No accessory muscle use. HEART: Regular rate and rhythm, normal S1 and S2 + murmur, rub or gallop. ABDOMEN: Soft, nontender, not distended, normoactive bowel sounds, no guarding, no rebound, no masses. No hepatomegaly or splenomegaly. MUSCULOSKELETAL: Normal range of motion at all joints. No bony deformities or tenderness. No CVA tenderness. UPPER EXTREMITIES: 2+ pulses, warm, well-perfused. No cyanosis. No clubbing. No peripheral edema. LOWER EXTREMITIES: 2+ pulses, warm, well-perfused. No calf tenderness. No peripheral edema. NEUROLOGICAL: Cranial nerves II-XII intact. Normal speech. No significant weakness. Sensory intact, finger to nose normal PSYCHIATRIC: Cooperative. Good eye contact. Appropriate mood and affect. SKIN: Warm, dry, normal turgor, no rashes or lesions noted, normal capillary refill. CBCD WBC 3.3 K/mm3 (4.0-10.0) L 09/01/17 07:00 RBC 4.03 M/mm3 (4.00-5.60) 09/01/17 07:00 Hgb 12.6 GM/dL (11.7-16.9) 09/01/17 07:00 Hct 38.1 % (35.4-49) 09/01/17 07:00 MCV 94.7 fl (80-96) 09/01/17 07:00 MCHC 33.1 g/dl (32.0-35.9) 09/01/17 07:00 RDW 14.0 % (11.9-15.9) 09/01/17 07:00 Plt Count 120 K/MM3 (134-434) L 09/01/17 07:00 MPV 8.3 fl (7.5-11.1) 09/01/17 07:00 CMP Sodium 141 mmol/L (136-145) 09/01/17 07:00 Potassium 4.1 mmol/L (3.5-5.1) 09/01/17 07:00 Chloride 107 mmol/L (98-107) 09/01/17 07:00 Carbon Dioxide 27 mmol/L (21-32) 09/01/17 07:00 Anion Gap 7 (8-16) L 09/01/17 07:00 BUN 13 mg/dL (7-18) 09/01/17 07:00 Creatinine 0.9 mg/dL (0.7-1.3) 09/01/17 07:00 Creat Clearance w eGFR > 60 (>60) 09/01/17 07:00 Calcium 8.0 mg/dL (8.5-10.1) L 09/01/17 07:00 Total Bilirubin 0.6 mg/dL (0.2-1.0) D 09/01/17 07:00 AST 13 U/L (15-37) L 09/01/17 07:00 ALT 16 U/L (12-78) 09/01/17 07:00 Alkaline Phosphatase 79 U/L (45-117) 09/01/17 07:00 Total Protein 6.4 g/dl (6.4-8.2) 09/01/17 07:00 Albumin 3.2 g/dl (3.4-5.0) L 09/01/17 07:00 CT head reviewed Carotid Doppler reviewed ASSESSMENT/PLAN: 81 year old male with a past medical history of syncope s/p PPM placement 3 months ago who presented to the ED s/p sudden LOC while doing his laundry. He denied any consulsive activity and no history of seizures. There was no symptoms preceeding the syncopal event. Reportedly, he was just doing his laundry and then he woke up on the floor with EMS surrounding him. He denies any palpitations, dizziness, chest pain. His daughter reports that he has had syncopal episodes approximately 3 times per year for the past 5 years and has been completely worked up many times at [facility]. He was placed on dilantin for suspicion of seizure disorder. He has not followed up with cardiology since his PPM was placed. Cardiology consulted for this admission. CT head completed and did not show acute changes. Neurologically, is asymptomatic and it is unclear to me that he would need to be Dilantin, but I would not withdraw at this time. Cannot have MRI 2/2 PPM, CT head without significant changes and remains asymptomatic at this time. Continue Dilantin 100mg three times daily for now, though I would consider eventual taper as outpatient. Carotid doppler reviewed and without HD signficant stenosis. Maintain PO hydration and intake. Monitor for orthostatics. Monitor blood pressure. Fall precautions. For discharge today. Outpatient follow up information provided.
--- NOTE | 2017-09-01 12:19 | PN ---
Physical Exam: SUBJECTIVE: Patient seen and examined at the bedside. He has shown the ability to make his own decisions, he was initially asking to leave AMA because he has previous engagements for tomorrow morning, but now willing to stay until at least he can have an echo and a possible ppm interrogation. Importance of maintaining safety discussed with patient. His daughter who is an RN was informed and updated. OBJECTIVE: Patient asking to leave AMA today, but after speaking to pt about POC, he is willing to stay but only until tomorrow at 9am Echo and PPM interrogation prior to d/c if patient is willing to stay Neuro notes reviewed Fall precautions Patient and I ambulated from his room to the solarium, his gait was steady, denies any dizziness or shortness of breath. Vital Signs Period Temp Pulse Resp BP Sys/Mckeon Pulse Ox Last 24 Hr 98.2 F-99.5 F 60-77 20-20 103-125/42-87 96-96 GENERAL: The patient is awake, alert, and fully oriented, in no acute distress. HEAD: Normal with no signs of trauma. EYES: PERRL, extraocular movements intact, sclera anicteric, conjunctiva clear. No ptosis. ENT: Ears normal, nares patent, oropharynx clear without exudates, moist mucous membranes. NECK: Trachea midline, full range of motion, supple. LUNGS: Breath sounds equal, clear to auscultation bilaterally, no wheezes, no crackles, no accessory muscle use. HEART: Paced 80s, ABDOMEN: Soft, nontender, nondistended, normoactive bowel sounds, no guarding, no rebound, no hepatosplenomegaly, no masses. EXTREMITIES: no edema. NEUROLOGICAL: Normal speech, gait not observed. PSYCH: Normal mood, normal affect. SKIN: Warm, dry, normal turgor, no rashes or lesions noted Laboratory Results - last 24 hr 08/31/17 09/01/17 09/01/17 10:32 05:35 07:00 WBC 3.3 L RBC 4.03 Hgb 12.6 Hct 38.1 MCV 94.7 MCH 31.3 MCHC 33.1 RDW 14.0 Plt Count 120 L MPV 8.3 Neutrophils % 41.8 L Lymphocytes % 43.4 H D Monocytes % 13.2 H Eosinophils % 1.3 Basophils % 0.3 Sodium Potassium Chloride Carbon Dioxide Anion Gap BUN Creatinine Creat Clearance w eGFR Random Glucose Calcium Total Bilirubin AST ALT Alkaline Phosphatase Total Protein Albumin Triglycerides 75 Cholesterol 234 H Total LDL Cholesterol 122 H HDL Cholesterol 86 H TSH 1.68 Urine Color Ltyellow Urine Appearance Clear Urine pH 6.0 Ur Specific [place] 1.018 Urine Protein Negative Urine Glucose (UA) Negative Urine Ketones Negative Urine Blood Negative Urine Nitrite Negative Urine Bilirubin Negative Urine Urobilinogen Negative Urine WBC (Auto) 29 Urine RBC (Auto) 6 Ur Epithelial Cells Rare Urine Mucus Rare 09/01/17 07:00 WBC RBC Hgb Hct MCV MCH MCHC RDW Plt Count MPV Neutrophils % Lymphocytes % Monocytes % Eosinophils % Basophils % Sodium 141 Potassium 4.1 Chloride 107 Carbon Dioxide 27 Anion Gap 7 L BUN 13 Creatinine 0.9 Creat Clearance w eGFR > 60 Random Glucose 84 Calcium 8.0 L Total Bilirubin 0.6 D AST 13 L ALT 16 Alkaline Phosphatase 79 Total Protein 6.4 Albumin 3.2 L Triglycerides Cholesterol Total LDL Cholesterol HDL Cholesterol TSH Urine Color Urine Appearance Urine pH Ur Specific Florence Urine Protein Urine Glucose (UA) Urine Ketones Urine Blood Urine Nitrite Urine Bilirubin Urine Urobilinogen Urine WBC (Auto) Urine RBC (Auto) Ur Epithelial Cells Urine Mucus Active Medications Generic Name Dose Route Start Last Admin Trade Name Freq PRN Reason Stop Dose Admin Aspirin 81 mg 09/01/17 10:00 09/01/17 10:04 Ecotrin - PO 81 mg DAILY JASON Administration Finasteride 5 mg 08/31/17 10:00 09/01/17 10:04 Proscar - PO 5 mg DAILY JASON Administration Phenytoin Sodium 100 mg 08/30/17 22:00 09/01/17 06:17 Dilantin - PO 100 mg TID JASON Administration Rosuvastatin Calcium 20 mg 08/31/17 22:00 08/31/17 22:03 Crestor - PO 20 mg HS JASON Administration Tamsulosin HCl 0.4 mg 08/31/17 08:30 09/01/17 10:05 Flomax - PO 0.4 mg DAILY@0830 JASON Administration ASSESSMENT/PLAN: Patient is an 81 year old male with a significant past medical history of syncope s/p PPM placement 3 months ago and 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 He presented to the ED on 08/30/2017 with a sudden loss of consciousness while attempting to do his laundry. Pt states that he was just doing his laundry and then he woke up on the floor with EMS surrounding him. He denies any palpitations, dizziness, chest pain. His daughter reports that he has had syncopal episodes approximately 3 times per year for the past 5 years and has been completely worked up many times at [facility]. He was placed on dilantin for suspicion of seizure disorder. He has not followed up with cardiology since his PPM was placed 3 months ago. Labs noted: elevated lipid panel (ch 234, LDL 122, HDL 86), hmg a1c 6.2, borderline low platelets, phentoin 4.9. Imaging: Head CT: no acute ICH generalized age related volume loss with severe microvascular ischemic changes Syncope: Cardiac component vs. Neuro related/seizures Monitor on tele cardiology consulted trops negative x 3 denies chest pain or shortness of breath Monitor vitals, labs On home dilantiin for hx of seizure disorder Phenytoin levels subtherapeutic, unclear if it may be due to noncompliance TSH wnl Echo tomorrow, Carotid doppler negative for any hemodynamic sign. stenosis Neuro and cardiology consulted and following Hyperlipidemia, acute elevated lipid panel Start on Crestor Endocrine: hmga1c 6.2, borderline dm Outpatient follow up Monitor daily blood levels : Neuropathic bladder On Flomax UA and UC ordered F.E.N. Fluids: PO intake adequate Electrolytes: monitor Nutrition: low sodium Prophylaxis: DVT: SCDs, ambulation with assistance GI: deferred for now Physical therapy Disposition. full code. Visit type - Emergency Visit Emergency Visit: Yes ED Registration Date: 08/30/17 Care time: The patient presented to the Emergency Department on the above date and was hospitalized for further evaluation of their emergent condition. - New Patient This patient is new to me today: No - Critical Care Critical Care patient: No - Discharge Referral Referred to [facility] No
[2017-09-01] MEDS ORDERED: PT OWN MED DRAWER 7, Y5N ONE ×2 (13:38→17:42)
[2017-09-01 19:57] LABS: URINE LEUK ESTERASE TRACE (NEGATIVE)
[2017-09-01] MEDS: ROSUVASTATIN CA 20 MG TABLET (FP) PO SCH (21:56)
[2017-09-02] MEDS: PHENYTOIN NA EXTENDED 100 MG CAPSULE (FP) PO SCH (06:47)
[2017-09-02 08:03] LABS: BASO % 0.5 % (0-2.0); EOS % 1.9 % (0-4.5); MCH 31.5 pg (25.7-33.7); MEAN CELL VOLUME 95.2 fl (80-96); MEAN PLT VOLUME 8.1 fl (7.5-11.1); NEUT % 39.2 % (42.8-82.8); PLATELET COUNT 116 K/MM3 (134-434); RDW 14.4 % (11.9-15.9); WHITE BLOOD COUNT 3.2 K/mm3 (4.0-10.0)
[2017-09-02 08:31] LABS: ALBUMIN 3.2 g/dl (3.4-5.0); ANION GAP 4 (8-16); BILIRUBIN,TOTAL 0.5 mg/dL (0.2-1.0); CALCIUM 8.1 mg/dL (8.5-10.1); CO2 31 mmol/L (21-32); CREATININE 0.9 mg/dL (0.7-1.3); GLUCOSE,RANDOM 77 mg/dL (74-106); MAGNESIUM 2.1 mg/dL (1.8-2.4); SGOT/AST 12 U/L (15-37); SGPT/ALT 16 U/L (12-78); TOT PROT 6.5 g/dl (6.4-8.2)
[2017-09-02 08:32] LABS: ALK PHOS 77 U/L (45-117)
--- NOTE | 2017-09-02 08:38 | DS ---
Physical Exam: SUBJECTIVE: Patient seen and examined after his echocardiogram. OBJECTIVE: Pt for discharge home today. Patient refusing to stay to have echo read. His daughter is an RN and works at [employer], and will have her father follow up as an outpatient. PPM interrogated last night, normal device as per PPM note Vital Signs Period Temp Pulse Resp BP Sys/Mckeon Pulse Ox Last 24 Hr 98.2 F-98.6 F 62-77 20-20 100-111/50-87 96-98 PHYSICAL EXAM GENERAL: The patient is awake, alert, and fully oriented, in no acute distress. HEAD: Normal with no signs of trauma. EYES: PERRL, extraocular movements intact, sclera anicteric, conjunctiva clear. No ptosis. ENT: Ears normal, nares patent, oropharynx clear without exudates, moist mucous membranes. NECK: Trachea midline, full range of motion, supple. LUNGS: Breath sounds equal, clear to auscultation bilaterally, no wheezes, no crackles, no accessory muscle use. HEART: Paced 80s, ABDOMEN: Soft, nontender, nondistended, normoactive bowel sounds, no guarding, no rebound, no hepatosplenomegaly, no masses. EXTREMITIES: no edema. NEUROLOGICAL: Normal speech, gait not observed. PSYCH: Normal mood, normal affect. SKIN: Warm, dry, normal turgor, no rashes or lesions noted LABS Laboratory Results - last 24 hr 09/01/17 09/01/17 09/01/17 05:35 07:00 07:00 WBC 3.3 L RBC 4.03 Hgb 12.6 Hct 38.1 MCV 94.7 MCH 31.3 MCHC 33.1 RDW 14.0 Plt Count 120 L MPV 8.3 Neutrophils % 41.8 L Lymphocytes % 43.4 H D Monocytes % 13.2 H Eosinophils % 1.3 Basophils % 0.3 Sodium 141 Potassium 4.1 Chloride 107 Carbon Dioxide 27 Anion Gap 7 L BUN 13 Creatinine 0.9 Creat Clearance w eGFR > 60 Random Glucose 84 Calcium 8.0 L Magnesium Total Bilirubin 0.6 D AST 13 L ALT 16 Alkaline Phosphatase 79 Total Protein 6.4 Albumin 3.2 L Urine Color Ltyellow Urine Appearance Clear Urine pH 6.0 Ur Specific [place] 1.018 Urine Protein Negative Urine Glucose (UA) Negative Urine Ketones Negative Urine Blood Negative Urine Nitrite Negative Urine Bilirubin Negative Urine Urobilinogen Negative Ur Leukocyte Esterase Trace H Urine WBC (Auto) 29 Urine RBC (Auto) 6 Ur Epithelial Cells Rare Urine Mucus Rare 09/02/17 09/02/17 06:00 06:00 WBC 3.2 L RBC 3.97 L Hgb 12.5 Hct 37.8 MCV 95.2 MCH 31.5 MCHC 33.0 RDW 14.4 Plt Count 116 L MPV 8.1 Neutrophils % 39.2 L Lymphocytes % 43.5 H Monocytes % 14.9 H Eosinophils % 1.9 Basophils % 0.5 Sodium 140 Potassium 4.3 Chloride 105 Carbon Dioxide 31 Anion Gap 4 L BUN 12 Creatinine 0.9 Creat Clearance w eGFR > 60 Random Glucose 77 Calcium 8.1 L Magnesium 2.1 Total Bilirubin 0.5 AST 12 L ALT 16 Alkaline Phosphatase 77 Total Protein 6.5 Albumin 3.2 L Urine Color Urine Appearance Urine pH Ur Specific [place] Urine Protein Urine Glucose (UA) Urine Ketones Urine Blood Urine Nitrite Urine Bilirubin Urine Urobilinogen Ur Leukocyte Esterase Urine WBC (Auto) Urine RBC (Auto) Ur Epithelial Cells Urine Mucus HOSPITAL COURSE: Date of Admission:08/30/17 Date of Discharge: 09/02/17 ASSESSMENT/PLAN: Patient is an 81 year old male with a significant past medical history of syncope s/p PPM placement 3 months ago and 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 He presented to the ED on 08/30/2017 with a sudden loss of consciousness while attempting to do his laundry. Pt states that he was just doing his laundry and then he woke up on the floor with EMS surrounding him. He denies any palpitations, dizziness, chest pain. His daughter reports that he has had syncopal episodes approximately 3 times per year for the past 5 years and has been completely worked up many times at [facility]. He was placed on dilantin for suspicion of seizure disorder. He has not followed up with cardiology since his PPM was placed 3 months ago. Labs noted: elevated lipid panel (ch 234, LDL 122, HDL 86), hmg a1c 6.2, borderline low platelets, phentoin 4.9. Imaging: Head CT: no acute ICH generalized age related volume loss with severe microvascular ischemic changes Syncope: Cardiac component vs. Neuro related/seizures, resolved No events on tele, cardiology notes reviewed PPM interrogated, echo done and complete (pending read) Follow up as an outpatient for echo results, pt not willing to stay for results. trops negative x 3 denies chest pain or shortness of breath Vitals and labs stable On home dilantiin for hx of seizure disorder Phenytoin levels subtherapeutic, unclear if it may be due to noncompliance Needs neuro follow up as an outpatient TSH wnl Carotid doppler negative for any hemodynamic sign. stenosis Hyperlipidemia, acute elevated lipid panel Continue on Crestor Endocrine: hmga1c 6.2, borderline dm Outpatient follow up : Neuropathic bladder On Flomax, Proscar UA with trace leuk, UC pending Patient denies any urinary symptoms, no fevers Monitor UC, if + will order antibiotics Disposition: discharge home. Needs close cardiology and neurology follow up. full code. Minutes to complete discharge: 60 Discharge Summary Reason For Visit: SYNCOPE Current Active Problems Hypercholesterolemia (Acute) Presence of permanent cardiac pacemaker (Acute) Sick sinus syndrome (Acute) Syncope (Acute) Condition: Improved - Instructions Diet, Activity, Other Instructions: Mr. Chicas: You were under observation at [facility] for syncope. During admission you had an echocardogram and your pacemaker was checked. Please follow up with Dr. Ale Hardin to discuss the results of both these exams. Also, Dr. Barkley (neurologist) would also like to see you within one week after discharge. Please call his office an make an appointment. Please have your hemaglobin A1c rechecked, it was boderline at 6.2, normal range is between 4.8 and 6.0. Continue the medications as ordered in your discharge instructions. New Medications: Dilantin 100mg three times per day 6am 2pm and 10pm Crestor (for high cholesterol) take one tablet at bedtime Aspirin 81mg daily Your urine culture is pending read, if it is positive, I will let you know. Please call me with any questions that you may have. [facility] [phone] Referrals: Wilfred Aguilera MD [Staff Physician] - Jonatan Barkley MD [Staff Physician] - Disposition: HOME - Home Medications Comprehensive Discharge Medication List: Ambulatory Orders Phenytoin Na Extended [Dilantin -] 200 mg PO TID 08/30/17 Tamsulosin HCl [Flomax] 0.4 mg PO DAILY 08/30/17 This patient is new to me today: No Emergency Visit: Yes ED Registration Date: 08/30/17 Care time: The patient presented to the Emergency Department on the above date and was hospitalized for further evaluation of their emergent condition. Critical Care patient: No - Discharge Referral Referred to [facility] No
--- NOTE | 2017-09-02 09:44 | PN ---
Progress Note, Physician Chief Complaint: Events noted Echocardiography reviewed. Normal LV systolic function History of Present Illness: Patient was seen and examined. Awake and alert. Chart was reviewed Denies chest pain, SOB or palpitations Patient has Biotronik pacemaker which was interrogated. appropriate function, episode of atrial tachycardia, non-sustained - Current Medication List Current Medications: Active Medications Aspirin (Ecotrin -) 81 mg PO DAILY [facility] Last Admin: 09/01/17 10:04 Dose: 81 mg Finasteride (Proscar -) 5 mg PO DAILY [facility] Last Admin: 09/01/17 10:04 Dose: 5 mg Phenytoin Sodium (Dilantin -) 100 mg PO TID [facility] Last Admin: 09/02/17 06:47 Dose: 100 mg Rosuvastatin Calcium (Crestor -) 20 mg PO HS [facility] Last Admin: 09/01/17 21:56 Dose: 20 mg Tamsulosin HCl (Flomax -) 0.4 mg PO DAILY@0830 [facility] Last Admin: 09/01/17 10:05 Dose: 0.4 mg - Objective Vital Signs: Vital Signs Temperature 98.6 F 09/02/17 06:00 Pulse Rate 64 09/02/17 06:00 Respiratory Rate 20 09/02/17 06:00 Blood Pressure 110/60 09/02/17 06:00 O2 Sat by Pulse Oximetry (%) 98 09/02/17 05:00 Eyes: Yes: PERRL Neck: Yes: Supple Cardiovascular: Yes: Regular Rate and Rhythm, S1, S2 Respiratory: Yes: CTA Bilaterally Gastrointestinal: Yes: Normal Bowel Sounds, Soft. No: Tenderness Edema: No Additional Findings/Remarks: - Review of Systems Constitutional: denies: Chills, Fever Cardiovascular: denies: Chest Pain, Palpitations, Shortness of Breath Respiratory: denies: Cough, Hemoptysis, Orthopnea, PND, SOB, SOB on Exertion Gastrointestinal: denies: Abdominal Pain, Constipation, Diarrhea, Melena, Nausea , Rectal Bleeding, Vomiting Neurological: reports: Syncope. denies: Confusion, Dizziness, Numbness, Parasthesia, Weakness Labs: CBC, BMP 09/02/17 06:00 09/02/17 06:00 INR, PTT INR 1.06 (0.82-1.09) 08/30/17 14:20 Problem List - Problems (1) Hypercholesterolemia Code(s): E78.00 - PURE HYPERCHOLESTEROLEMIA, UNSPECIFIED (2) Presence of permanent cardiac pacemaker Code(s): Z95.0 - PRESENCE OF CARDIAC PACEMAKER (3) Sick sinus syndrome Code(s): I49.5 - SICK SINUS SYNDROME (4) Syncope Code(s): R55 - SYNCOPE AND COLLAPSE Qualifiers: Syncope type: unspecified Qualified Code(s): R55 - Syncope and collapse Assessment/Plan 1. Syncope, etiology to be determined, vasovagal vs. Neurocardiogenic 2. Post pacemaker implantation (Biotronik) 3. Hypercholesterolemia 4. Doubt seizure per Neurology PLAN: 1. Echocardiography reviewed 2. Currently on Crestor 3. Pacemaker interrogated. Further check should be done as outpatient Further plans are to follow and remainder of cardiac work up can be done as outpatient. Patient was offered to follow up in office. Discharge home Wilfred Aguilera MD
--- NOTE | 2017-09-02 09:45 | PN ---
Progress Note (short form) - Note Progress Note: Neurology HISTORY OF PRESENT ILLNESS: This is an 81 year old male with a past medical history of syncope s/p PPM placement 3 months ago who presented to the ED s/p sudden LOC while doing his laundry. He denied any consulsive activity and no history of seizures. There was no symptoms preceeding the syncopal event. Reportedly, he was just doing his laundry and then he woke up on the floor with EMS surrounding him. He denies any palpitations, dizziness, chest pain. His daughter reports that he has had syncopal episodes approximately 3 times per year for the past 5 years and has been completely worked up many times at [facility]. He was placed on dilantin for suspicion of seizure disorder. He has not followed up with cardiology since his PPM was placed. Cardiology consulted and following. CT head completed and did not show acute changes. Neurologically, is asymptomatic and it is unclear to me that he would need to be Dilantin, but I would not withdraw at this time. Has been stable and CD without significant stenosis. Patient for discharge today. Discussed with hospitalist. Active Medications Generic Name Dose Route Start Last Admin Trade Name Nicholasq PRN Reason Stop Dose Admin Aspirin 81 mg 09/01/17 10:00 09/01/17 10:04 Ecotrin - PO 81 mg DAILY JASON Administration Finasteride 5 mg 08/31/17 10:00 09/01/17 10:04 Proscar - PO 5 mg DAILY JASON Administration Phenytoin Sodium 100 mg 08/30/17 22:00 09/02/17 06:47 Dilantin - PO 100 mg TID JASON Administration Rosuvastatin Calcium 20 mg 08/31/17 22:00 09/01/17 21:56 Crestor - PO 20 mg HS JASON Administration Tamsulosin HCl 0.4 mg 08/31/17 08:30 09/01/17 10:05 Flomax - PO 0.4 mg DAILY@0830 JASON Administration PHYSICAL EXAMINATION Vital Signs Period Temp Pulse Resp BP Sys/Mckeon Pulse Ox Last 24 Hr 98.2 F-98.6 F 62-77 20-20 100-111/50-87 96-98 GENERAL: Awake, alert, and fully oriented, in no acute distress. HEAD: Normal with no signs of trauma. EYES: Pupils equal, round and reactive to light, extraocular movements intact, sclera anicteric, conjunctiva clear. No lid lag. EARS, NOSE, THROAT: Ears normal, nares patent, oropharynx clear without exudates. Moist mucous membranes. NECK: Normal range of motion, supple without lymphadenopathy, JVD, or masses. LUNGS: Breath sounds equal, clear to auscultation bilaterally. No wheezes, and no crackles. No accessory muscle use. HEART: Regular rate and rhythm, normal S1 and S2 + murmur, rub or gallop. ABDOMEN: Soft, nontender, not distended, normoactive bowel sounds, no guarding, no rebound, no masses. No hepatomegaly or splenomegaly. MUSCULOSKELETAL: Normal range of motion at all joints. No bony deformities or tenderness. No CVA tenderness. UPPER EXTREMITIES: 2+ pulses, warm, well-perfused. No cyanosis. No clubbing. No peripheral edema. LOWER EXTREMITIES: 2+ pulses, warm, well-perfused. No calf tenderness. No peripheral edema. NEUROLOGICAL: Cranial nerves II-XII intact. Normal speech. No significant weakness. Sensory intact, finger to nose normal PSYCHIATRIC: Cooperative. Good eye contact. Appropriate mood and affect. SKIN: Warm, dry, normal turgor, no rashes or lesions noted, normal capillary refill. 09/02/17 06:00 09/02/17 06:00 CT head reviewed Carotid Doppler reviewed ASSESSMENT/PLAN: 81 year old male with a past medical history of syncope s/p PPM placement 3 months ago who presented to the ED s/p sudden LOC while doing his laundry. He denied any consulsive activity and no history of seizures. There was no symptoms preceeding the syncopal event. Reportedly, he was just doing his laundry and then he woke up on the floor with EMS surrounding him. He denies any palpitations, dizziness, chest pain. His daughter reports that he has had syncopal episodes approximately 3 times per year for the past 5 years and has been completely worked up many times at [facility]. He was placed on dilantin for suspicion of seizure disorder. He has not followed up with cardiology since his PPM was placed. Cardiology consulted for this admission. CT head completed and did not show acute changes. Neurologically, is asymptomatic and it is unclear to me that he would need to be Dilantin, but I would not withdraw at this time. Cannot have MRI 2/2 PPM, CT head without significant changes and remains asymptomatic at this time. Continue Dilantin 100mg three times daily for now, though I would consider eventual taper as outpatient. Carotid doppler reviewed and without HD signficant stenosis. Maintain PO hydration and intake. Monitor for orthostatics. Monitor blood pressure. Fall precautions. For discharge today. Outpatient follow up information provided.
[2017-09-02] MEDS: FINASTERIDE 5 MG TABLET (FP) PO SCH (09:51)
[2017-09-02] MEDS: ASPIRIN COATED 81 MG TABLET.EC PO SCH (09:51)
[2017-09-02] MEDS: TAMSULOSIN HCL 0.4 MG CAP.ER.24H (FP) PO SCH (09:51)
[2017-09-02] MEDS ORDERED: FINASTERIDE 5 MG TABLET (FP) PO SCH (10:00)
[2017-09-02 12:36] VITALS: BP 101/63; PULSE 67; TEMP 98.1
--- NOTE | 2017-09-03 01:50 | EKG ---
Test Reason : Blood Pressure : / mmHG Vent. Rate : 072 BPM Atrial Rate : 060 BPM P-R Int : 000 ms QRS Dur : 146 ms QT Int : 440 ms P-R-T Axes : 000 -13 056 degrees QTc Int : 481 ms Atrial-paced rhythm with prolonged AV conduction WITH FREQUENT ventricular-paced complexes NON-SPECIFIC INTRA-VENTRICULAR CONDUCTION BLOCK ABNORMAL ECG NO PREVIOUS ECGS AVAILABLE Confirmed by LAVONNE MORTON MD ([id number]) on 09/03/2017 1:50:24 AM Referred By: Confirmed By:LAVONNE MORTON MD
== END 2017-09-02 13:32 | disposition home or self-care (01) ==
LOC: JER 13:24 → JERBED 17:30 → J4W 20:35
PROVIDERS: ADMIT Internal Medicine; ATTEND Nurse Practitioner Family
DX: R55 Syncope and collapse (principal); I49.5 Sick sinus syndrome; G40.909 Epilepsy, unspecified, not intractable, without status epilepticus; N40.0 Benign prostatic hyperplasia without lower urinary tract symptoms; E78.5 Hyperlipidemia, unspecified; N31.9 Neuromuscular dysfunction of bladder, unspecified; Z95.0 Presence of cardiac pacemaker; Z79.82 Long term (current) use of aspirin
CPT/HCPCS: 36415; 70450-TC; 71020-TC; 80048; 80053; 80061; 80185; 81003; 81015; 82550; 83036; 83721; 83735; 83880; 84100; 84443; 84484; 85025; 85610; 85730; 87086; 93005; 93010; 93306-TC; 93880-TC; 97116-GP; 97161-GP; 99284-25; G0378

== ENCOUNTER 2018-08-27 21:15 | Emergency (ER) | payer OTHER ==
--- NOTE | 2018-08-27 21:35 | PDOC ---
Rapid Medical Evaluation Time Seen by Provider: 08/27/18 21:33 Medical Evaluation: Allergies Allergy/AdvReac Type Severity Reaction Status Date / Time No Known Allergies Allergy Verified 08/30/17 13:52 08/27/18 21:33 08/27/18 19:49 I have performed a brief in-person evaluation of this patient. The patient presents with a chief complaint of: multiple abscesses, h/o HTN Pertinent physical exam findings: stable, defer to ED I have ordered the following:nothing The patient will proceed to the ED for further evaluation Discharge Disposition Discharge Disposition - Diagnosis Abscess - Referrals - Patient Instructions - Post Discharge Activity
[2018-08-27] MEDS ORDERED: ACETAMINOPHEN 500 MG TABLET (FP) PO ONE (22:13)
[2018-08-27] MEDS ORDERED: ACETAMINOPHEN 325 MG TABLET (FP) ONE (22:26)
--- NOTE | 2018-08-27 22:51 | PDOC ---
History of Present Illness - General History Source: Patient Exam Limitations: No Limitations - History of Present Illness Initial Comments: 08/27/18 22:43 Pt is an 82yo M with PMH of seizures, BPH, HLD, pacemaker, BIBA after a mechanical fall that happened this afternoon. Pt said he was getting off the bus and walking to the store when he tripped and fell onto his face. He denies LOC, amnesia, tongue biting, bowel/bladder incontinence. He went home but decided to come to ED for worsening pain across his head. He is not on any blood thinners. Denies chest pain, sob, joint pain, abdominal pain, n/v/d, urinary symptoms. Says he received tetanus shot within the year. 1 <Leeann Vargas - Last Filed: 08/27/18 23:11> <Kamar Murphy - Last Filed: 08/28/18 01:24> - General Chief Complaint: Injury Stated Complaint: FALL Time Seen by Provider: 08/27/18 21:33 Past History - Past Medical History Cardiac Disorders: Yes (PACEMAKER) CVA: No COPD: No Disorders: Yes (BPH) Seizures: Yes - Surgical History Cardiac Surgery: Yes (pacemaker) - Immunization History Immunization Up to Date: Yes - Suicide/Smoking/Psychosocial Hx Smoking History: Never smoked Have you smoked in the past 12 months: No Information on smoking cessation initiated: No Hx Alcohol Use: No Drug/Substance Use Hx: No Substance Use Type: None <Leeann Vargas - Last Filed: 08/27/18 23:11> <Kamar Murphy - Last Filed: 08/28/18 01:24> - Past Medical History Allergies/Adverse Reactions: Allergies Allergy/AdvReac Type Severity Reaction Status Date / Time No Known Allergies Allergy Verified 08/27/18 22:09 Home Medications: Ambulatory Orders Tamsulosin HCl [Flomax] 0.4 mg PO DAILY 08/30/17 Aspirin Coated [Ecotrin -] 81 mg PO DAILY tablet.ec 09/02/17 Finasteride [Proscar] 5 mg PO DAILY #30 tablet 09/02/17 Phenytoin Na Extended [Dilantin -] 100 mg PO TID #100 capsule 09/02/17 Rosuvastatin [Crestor -] 20 mg PO HS #30 tablet 09/02/17 *Physical Exam - Vital Signs Last Vital Signs Temp Pulse Resp BP Pulse Ox 98.1 F 64 18 127/87 100 08/27/18 21:15 08/27/18 21:15 08/27/18 21:15 08/27/18 21:15 08/27/18 21:15 <Leeann Vargas - Last Filed: 08/27/18 23:11> - Vital Signs Last Vital Signs Temp Pulse Resp BP Pulse Ox 98.1 F 64 18 127/87 100 08/27/18 21:15 08/27/18 21:15 08/27/18 21:15 08/27/18 21:15 08/27/18 21:15 <Ou,Kamar - Last Filed: 08/28/18 01:24> Moderate Sedation - Procedure Monitoring Vital Signs: Procedure Monitoring Vital Signs Temperature 98.1 F 08/27/18 21:15 Pulse Rate 64 08/27/18 21:15 Respiratory Rate 18 08/27/18 21:15 Blood Pressure 127/87 08/27/18 21:15 O2 Sat by Pulse Oximetry (%) 100 08/27/18 21:15 <Leeann Vargas - Last Filed: 08/27/18 23:11> - Procedure Monitoring Vital Signs: Procedure Monitoring Vital Signs Temperature 98.1 F 08/27/18 21:15 Pulse Rate 64 08/27/18 21:15 Respiratory Rate 18 08/27/18 21:15 Blood Pressure 127/87 08/27/18 21:15 O2 Sat by Pulse Oximetry (%) 100 08/27/18 21:15 <JeffreyKamar - Last Filed: 08/28/18 01:24> ED Treatment Course - RADIOLOGY Radiology Studies Ordered: Category Date Time Status HEAD CT WITHOUT CONTRAST [CT] Stat CT Scan 08/27/18 22:35 Ordered - Medications Given in the ED: ED Medications Discontinued Medications Generic Name Dose Route Start Last Admin Trade Name Freq PRN Reason Stop Dose Admin Acetaminophen 975 mg 08/27/18 22:13 08/27/18 22:39 Tylenol - PO 08/27/18 22:14 975 mg ONCE ONE Administration <Leeann Vargas - Last Filed: 08/27/18 23:11> - Medications Given in the ED: ED Medications Discontinued Medications Generic Name Dose Route Start Last Admin Trade Name Freq PRN Reason Stop Dose Admin Acetaminophen 975 mg 08/27/18 22:13 08/27/18 22:39 Tylenol - PO 08/27/18 22:14 975 mg ONCE ONE Administration Tetanus/Diphtheria Toxoids Adsorbed 0.5 ml 08/27/18 23:21 08/27/18 23:39 Decavac IM 08/27/18 23:22 0.5 ml .ONCE ONE Administration <Kamar Murphy - Last Filed: 08/28/18 01:24> Medical Decision Making - Medical Decision Making 08/27/18 22:57 Pt is an 82yo M with PMH of seizures, BPH, HLD, pacemaker, BIBA after a mechanical fall that happened this afternoon. Pt said he was getting off the bus and walking to the store when he tripped and fell onto his face. He denies LOC, amnesia, tongue biting, bowel/bladder incontinence. He went home but decided to come to ED for worsening pain across his head. He is not on any blood thinners. Denies chest pain, sob, joint pain, abdominal pain, n/v/d, urinary symptoms. Tetanus UTD Vitals: wnl PE: abrasion over forehead and nose. DDx: seizure, arrhythmia, syncope. Pt denies loc and seizure, remembers event. Most likely mechanical fall. will order CT head. Given Tylenol for pain. 08/27/18 23:12 <Leeann Vargas - Last Filed: 08/27/18 23:11> *DC/Admit/Observation/Transfer <Leeann Vargas - Last Filed: 08/27/18 23:11> <Kamar Murphy - Last Filed: 08/28/18 01:24> Diagnosis at time of Disposition: Fall - Discharge Dispostion Disposition: HOME Condition at time of disposition: Fair - Patient Instructions Printed Discharge Instructions: How to Prevent Falls, DI for Abrasion Additional Instructions: Apply antibiotic ointment to the injuries on your face to prevent infection. Your CT scans were negative for fracture today. If you experience worsening headache, nausea, vomiting, or any other concerning symptoms, return to the ER immediately. Otherwise, follow up with your primary doctor within 1 week.
[2018-08-27] MEDS ORDERED: TETANUS AND DIPHTHERIA TOXOID 0.5 ML DISP.SYRIN IM ONE (23:21)
[2018-08-27] MEDS ORDERED: DIPHTH,PERTUSS(ACELL),TET 0.5 ML DISP.SYRIN IM ONE (23:34)
--- NOTE | 2018-08-27 23:41 | PDOC ---
Attending Attestation - Resident Resident Name: Leeann Vargas - ED Attending Attestation I have performed the following: I have examined & evaluated the patient, The case was reviewed & discussed with the resident, I agree w/resident's findings & plan, Exceptions are as noted - HPI HPI: 08/27/18 23:39 The patient is an 82 year old male with a significant past medical history of seizures, BPH, HLD, pacemaker, who presents to the ED via EMS s/p mechanical fall this afternoon. Pt said he was getting off the bus when he tripped and fell onto his face. He denies LOC. Pt states he got up immediately afterwards and felt fine. However, he started to develop a headache later in the day, prompting him to come to the ED. He denies chest pain, sob, joint pain, abdominal pain, n/v/d, urinary symptoms. - Physicial Exam PE: 08/27/18 23:40 "GENERAL: Awake, alert, and fully oriented, in no acute distress. HEAD: + abrasions to forehead, nose, upper lip, no lacerations EYES: PERRLA, EOMI, sclera anicteric, conjunctiva clear ENT: Auricles normal inspection, hearing grossly normal, nares patent, oropharynx clear without exudates. Moist mucosa NECK: Nontender, no stepoffs, Normal ROM, supple, no lymphadenopathy, JVD, or masses LUNGS: Breath sounds equal, clear to auscultation bilaterally. No wheezes, and no crackles HEART: Regular rate and rhythm, normal S1 and S2, no murmurs, rubs or gallops ABDOMEN: Soft, nontender, normoactive bowel sounds. No guarding, no rebound. No masses EXTREMITIES: Normal range of motion, no edema. No clubbing or cyanosis. No cords, erythema, or tenderness NEUROLOGICAL: Cranial nerves II through XII intact. 5/5 strength and sensation in all extremities, Normal speech, normal gait, normal cerebellar function SKIN: Warm, Dry, normal turgor, no rashes or lesions noted. - Medical Decision Making 08/27/18 23:41 82 M with mechanical fall, presenting to ED with abrasions to face and mild headache. - CT head/facial bones/c-spine - Tdap 08/28/18 01:[address] unremarkable Pt is well appearing, with normal vitals. Clinically stable for DC at this time. I discussed the physical exam findings, ancillary test results and final diagnoses with the patient. I answered all of the patient's questions. The patient was satisfied with the care received and felt comfortable with the discharge plan and treatment plan. The patient agrees to follow up with the primary care physician within 24-72 hours.
[2018-08-28 01:44] VITALS: BP 126/79; PULSE 72; TEMP 97.9
== END 2018-08-28 01:41 | disposition home or self-care (01) ==
LOC: JER 21:15
PROC: 3E0234Z Introduction of Serum, Toxoid and Vaccine into Muscle, Percutaneous Approach (ICD-10-PCS; principal; 2018-08-27)
DX: N40.0 Benign prostatic hyperplasia without lower urinary tract symptoms (principal); V78.4XXA Person boarding or alighting from bus injured in noncollision transport accident, initial encounter; E78.5 Hyperlipidemia, unspecified; Z95.0 Presence of cardiac pacemaker; Y93.9 Activity, unspecified; Y92.9 Unspecified place or not applicable
CPT/HCPCS: 70450-TC; 70486-TC; 72125-TC; 90471; 99282-25

== ENCOUNTER 2018-10-15 17:04 | Inpatient (IN) | payer OTHER ==
[2018-10-15 17:37] VITALS: BMI 23.8
--- NOTE | 2018-10-15 17:38 | PDOC ---
History of Present Illness - General Chief Complaint: Chest Pain Stated Complaint: CHEST PAIN, LEG WEAKNESS - History of Present Illness Initial Comments: 10/15/18 17:36 83 yo M with h/o HLD, seizure disorder, BPH, pacemaker placement who p/w lightheadedness. Per patient and pt. son, patient has had increasingly unsteady gait x 3 days, with frequent stumbling. Currently states that he feels that he is going to "pass out." Typically ambulatory without assistive device. Denies fall, LOC, head trauma, convulsions. + bifrontal diffuse headache x 2-3 days, no identifiable triggers or alleviators. + fatigue x 3 days. Patient endorses intermittent room spinning sensation, but unable to characterize which direction. Patient denies vision change, tinnitus, leg pain/swelling, cough, wheezing, palpitations, N/V, F,C, CP, SOB, urinary complaints, abdominal pain, diarrhea, constipation, sensory changes. PMHx: as noted above. Denies h/o ACS/AL, stent placement, CABG, CVA/TIA. ROS: as noted Allergies: NKDA Cardiology: Dr. Hardin Past History - Past Medical History Allergies/Adverse Reactions: Allergies Allergy/AdvReac Type Severity Reaction Status Date / Time No Known Allergies Allergy Verified 10/15/18 17:37 Home Medications: Ambulatory Orders Tamsulosin HCl [Flomax] 0.4 mg PO DAILY 08/30/17 Aspirin Coated [Ecotrin -] 81 mg PO DAILY tablet.ec 09/02/17 Finasteride [Proscar] 5 mg PO DAILY #30 tablet 09/02/17 Phenytoin Na Extended [Dilantin -] 100 mg PO TID #100 capsule 09/02/17 Cardiac Disorders: Yes (PACEMAKER) CVA: No COPD: No Disorders: Yes (BPH) Seizures: Yes - Surgical History Cardiac Surgery: Yes (pacemaker) - Immunization History Immunization Up to Date: Yes - Suicide/Smoking/Psychosocial Hx Smoking History: Never smoked Have you smoked in the past 12 months: No Hx Alcohol Use: No Drug/Substance Use Hx: No Substance Use Type: None Review of Systems - Review of Systems Comments:: 10/15/18 17:37 GENERAL/CONSTITUTIONAL: No fever or chills. No weakness. HEAD, EYES, EARS, NOSE AND THROAT: No change in vision. No ear pain or discharge. No sore throat. CARDIOVASCULAR: No chest pain or shortness of breath RESPIRATORY: No cough, wheezing, or hemoptysis. GASTROINTESTINAL: No nausea, vomiting, diarrhea or constipation. GENITOURINARY: No dysuria, frequency, or change in urination. MUSCULOSKELETAL: No joint or muscle swelling or pain. No neck or back pain. SKIN: No rash NEUROLOGIC: + lightheadedness, headache. No vertigo, loss of consciousness, or change in sensation. ENDOCRINE: No increased thirst. No abnormal weight change HEMATOLOGIC/LYMPHATIC: No anemia, easy bleeding, or history of blood clots. ALLERGIC/IMMUNOLOGIC: No hives or skin allergy. *Physical Exam - Physical Exam Comments: 10/15/18 17:37 GENERAL: Awake, alert, oriented to self, in no acute distress HEAD: No signs of trauma, normocephalic, atraumatic EYES: PERRLA, EOMI, sclera anicteric, conjunctiva clear ENT: Auricles normal inspection, hearing grossly normal, nares patent, oropharynx clear without exudates. Moist mucosa NECK: Normal ROM, supple, no lymphadenopathy, JVD, or masses LUNGS: No distress, speaks full sentences, clear to auscultation bilaterally HEART: Regular rate and rhythm, normal S1 and S2, no murmurs, rubs or gallops, peripheral pulses normal and equal bilaterally. ABDOMEN: Soft, nontender, normoactive bowel sounds. No guarding, no rebound. No masses EXTREMITIES : Normal inspection, Normal range of motion, no edema. No clubbing or cyanosis. NEUROLOGICAL: Cranial nerves II through XII grossly intact. Normal speech, no focal sensorimotor deficits SKIN: Warm, Dry, normal turgor, no rashes or lesions noted Heart Score/ECG Review - History History: Slightly suspicious - Electrocardiogram EKG: Non specific repolarization disturbance - Age Age: >/= 65 - Risk Factors Risk Factors Heart Score: Yes Hx Hypercholesterolemia, Yes Hx Hypertension, Yes Positive family hx of cardiac disease Based on the list above the patient has:: >/=3 risk factors or Hx atherosclerotic disease - Troponin Troponin: </= normal limit - Score Heart Score - Total: 5 ED Treatment Course - LABORATORY CBC & Chemistry Diagram: 10/15/18 17:40 10/15/18 18:54 Medical Decision Making - Medical Decision Making 10/15/18 17:37 83 yo M with h/o HLD, seizure disorder, BPH, pacemaker placement who p/w lightheadedness x 3 days. Vitals wnl, AF, A&OX3. Denies N/V, F,C, CP, SOB, urinary complaints, abdominal pain, diarrhea, constipation, sensory changes. Physical exam unremarkable Will assess for VBI/TIA, cardiac dysarrythmia, electrolyte abnml, metabolic and toxic derangements, acid-base disturbances, infection. ED Course: 10/15/18 18:53 EKG: Atrial paced rhythm. HR 60, normal interval duration, and axis. 10/15/18 18:54 WBC: 2.3 10/15/18 20:44 CTH: No acute pathology 10/15/18 20:45 Elevated heart score ~5 Plan to admit for observation 10/15/18 21:47 Patient admitted to tele/obs. Endorsed to Dr. markham Admitted to [facility] *DC/Admit/Observation/Transfer Diagnosis at time of Disposition: Lightheadedness - Discharge Dispostion Condition at time of disposition: Stable Decision to Admit order: Yes - Referrals - Patient Instructions Printed Discharge Instructions: DI for Chest Pain Additional Instructions: Please return to the emergency department with any new or worsening symptoms or concerns. Please follow up with your primary care physician within 72 hours. - Post Discharge Activity - Attestations Physician Attestion: 10/15/18 17:38 I attest to the information provided in this note.
--- NOTE | 2018-10-15 17:45 | PDOC ---
Attending Attestation - HPI HPI: 10/15/18 18:17 The patient is a 83 year old male with a significant past medical history of HLD , seizure disorder, BPH, pacemaker placement who presents to the ED with complaint of lightheadedness, dizziness, generalized weakness and headache. As per the patient's son at bedside, the patient has been unsteady on his feet and stumbling into things for the past 3 days. The patient walks without assistance at baseline. The patient states he feels intermittent dizzy when he stands. He states he sometimes feels like "passing out" but denies doing so. He localizes his headache to his frontal head. Patient denies vision change, tinnitus, N/V, F,C, CP, SOB, urinary complaints, abdominal pain, diarrhea, constipation, lightheadedness, weakness, sensory changes. Allergies: NKDA Cardiology: Dr. Aguilera - Physicial Exam PE: 10/15/18 18:20 GENERAL: The patient is in no acute distress. HEAD: Normal with no signs of trauma. EYES: PERRLA, EOMI, sclera anicteric, conjunctiva clear. ENT: Ears normal, nares patent, oropharynx clear without exudates. Moist mucous membranes. NECK: Normal range of motion, supple without lymphadenopathy, JVD, or masses. LUNGS: Breath sounds equal, clear to auscultation bilaterally. No wheezes, and no crackles. HEART:Regular rate and rhythm, normal S1 and S2 without murmur, rub or gallop. ABDOMEN: Soft, nontender, normoactive bowel sounds. No guarding, no rebound. No masses palpable. EXTREMITIES: Normal range of motion, no edema. No clubbing or cyanosis. No erythema, or tenderness. NEUROLOGICAL: Cranial nerves II through XII grossly intact. Normal speech. No focal neurological deficits. MUSCULOSKELETAL: Back non-tender to palpation, no CVA tenderness SKIN: Warm, Dry, normal turgor, no rashes or lesions noted. - Medical Decision Making 10/15/18 18:22 Documentation prepared by Britt Nix, acting as biomedical equipment tech for Sanam Urena MD <Britt Nix - Last Filed: 10/15/18 18:17> - Resident Resident Name: Virgil Peterson - ED Attending Attestation I have performed the following: I have examined & evaluated the patient, The case was reviewed & discussed with the resident, I agree w/resident's findings & plan, Exceptions are as noted - Medical Decision Making 83 yo M presenting due to lightheadedness It is unclear to me if he also had vertigo Mild headache He was brought to the ER because family members have noted that he has been ataxic, and bumping in to things at home No chest pain No palpitations Pt repeatedly states that he has a pacemaker 10/15/18 18:34 EKG - Atrial paced, LBBB 10/15/18 18:35 Laboratory Tests 10/15/18 17:40 WBC 2.3 L Hgb 12.9 Hct 37.4 Pt signed out to overnight team pending CMP and labs Anticipate admission <Sanam Urena - Last Filed: 10/16/18 17:59>
[2018-10-15 18:15] LABS: BASO % 0.5 % (0-2.0); EOS % 1.8 % (0-4.5); HEMATOCRIT 37.4 % (35.4-49); HEMOGLOBIN 12.9 GM/dL (11.7-16.9); LYMPH % 34.5 % (8-40); MCH 32.8 pg (25.7-33.7); MCHC 34.5 g/dl (32.0-35.9); MEAN PLT VOLUME 8.8 fl (7.5-11.1); MONO % 12.7 % (3.8-10.2); NEUT % 50.5 % (42.8-82.8); RBC 3.94 M/mm3 (4.00-5.60); RDW 13.6 % (11.9-15.9); WHITE BLOOD COUNT 2.3 K/mm3 (4.0-10.0)
[2018-10-15 18:45] LABS: PLATELET COUNT 159 K/MM3 (134-434); PLATELET ESTIMATE DECREASED
[2018-10-15 19:38] LABS: ALBUMIN 3.6 g/dl (3.4-5.0); ALK PHOS 100 U/L (45-117); ANION GAP 6 MMOL/L (8-16); BILIRUBIN,TOTAL 0.3 mg/dL (0.2-1); BLOOD UREA NITROGEN 15 mg/dL (7-18); CALCIUM 8.1 mg/dL (8.5-10.1); CHLORIDE 105 mmol/L (98-107); CO2 30 mmol/L (21-32); GLUCOSE,RANDOM 89 mg/dL (74-106); POTASSIUM 4.3 mmol/L (3.5-5.1); SGOT/AST 18 U/L (15-37); SGPT/ALT 19 U/L (13-61); SODIUM 141 mmol/L (136-145); TOT PROT 7.2 g/dl (6.4-8.2)
--- NOTE | 2018-10-15 21:58 | PN ---
Teaching Attending Note Name of Resident: Elenita Mccartney ATTENDING PHYSICIAN STATEMENT I saw and evaluated the patient. I reviewed the resident's note and discussed the case with the resident. I agree with the resident's findings and plan as documented. SUBJECTIVE: Patient is an 83 year old man with a PMH of HLD, seizure disorder, BPH and pacemaker placement who presents to the ER with complaint of lightheadedness, dizziness, generalized weakness and headache. As per the patient's son at bedside, the patient has been unsteady on his feet and stumbling into things for the past 3 days. The patient walks without assistance at baseline. The patient states he feels intermittent dizzy when he stands. He states he sometimes feels like "passing out" but denies doing so. He localizes his headache to his frontal head. Patient denies vision change, tinnitus, nausea, vomiting, chills, chest pain, SOB, urinary complaints, abdominal pain or changes in bowel habits. Patient seems to think he had a seizure. Does not remember how long he has had seizures or the last time he had a seizure. OBJECTIVE: Alert and not orthostatic Vital Signs Period Temp Pulse Resp BP Sys/Mckeon Pulse Ox Last 24 Hr 97.7 F 61-76 16-20 102-107/77-77 99-100 HEENT: No Jaundice, eye redness or discharge, PERRLA, EOMI. No nystagmus. Normocephalic, atraumatic. External ears are normal and hearing is grossly intact. No nasal discharge. Tongue fasciculations. Neck: Supple, nontender. No palpable adenopathy or thyromegaly. No JVD Chest: Good effort. Clear to auscultation and percussion. Heart: Regular. No S3, rub or murmur Abdomen: Not distended, soft, nontender and no HSM. No rebound or guarding. Normoactive bowel sounds. Ext: Peripheral pulses intact. No leg edema. Skin: Warm and dry. No petechiae, rash or ecchymosis. Neuro: Alert. Oriented to person and place. CN 2-12 grossly intact. Sensation grossly intact in all four extremities and DTR are symmetric. Unsteady gait - favours the left side. Home Medications Medication Instructions Recorded Tamsulosin HCl [Flomax] 0.4 mg PO DAILY 12/15/17 Aspirin Coated [Ecotrin -] 81 mg PO DAILY tablet.ec 09/02/17 Finasteride [Proscar] 5 mg PO DAILY #30 tablet 09/02/17 Phenytoin Na Extended [Dilantin -] 100 mg PO TID #100 capsule 09/02/17 Abnormal Lab Results 10/15/18 10/15/18 17:40 18:54 WBC 2.3 L RBC 3.94 L Absolute Neuts (auto) 1.2 L Monocytes % 12.7 H Anion Gap 6 L Calcium 8.1 L ASSESSMENT AND PLAN: 1. Presyncope/Gait Instability - Etiology is unclear. Patient is on Flomax and Proscar - may cause dizziness; he denies using any anti-erectile dysfunction agents. CT scan of the brain does not show any acute abnormality and EKG shows atrial-paced rhythm and LBBB. Will admit to telemetry, get ECHO, carotid doppler , rule out ACS, interrogate pacemaker, check dilantin level STAT, implement fall precautions and consult PT, cardiology and neurology. Discuss Brain CT with contrast/angioraphy with neurology to exclude infarct. Repeat CBC in view of unexplained leukopenia and get urinalysis. Consult urology to reevaluate use of Flomax and Proscar. 2. DVT prophylaxis - Lovenox 40 mg SQ q 24 hours. 3. Advance directives - Full code
--- NOTE | 2018-10-15 22:52 | HP ---
CHIEF COMPLAINT: lightheadedness, difficulty ambulating x 1 day PCP: HISTORY OF PRESENT ILLNESS: 83 y/o M with PMH HLD, sz disorder, BPH, pacemaker placement - [employer] 07/02, who presented to the ED c/o lightheadedness and instability while ambulating for the past day. States that he felt "very weak and bad." Also endorses episode of "shaking" this AM while sitting down. Unaware of whether it was a sz episode. No fall, LOC, tongue biting, or urinary or bowel incontinence. Mentions that he continued to feel unwell, thus his son and fiance brought him to the ED for further evaluation. During this time, pt also endorses a generalized, bifrontal SANTIAGO. Denies recent illnesses, SANTIAGO, fever, chills, SOB, chest pain or pressure, or changes in urinary or bowel function. No recent medication changes. Pt lives with his son and fiance. At baseline, ambulates on own. Of note, pt was hospitalized here in 2017 with similar sx/presyncope, underwent ECHO which revealed moderate asymmetric LVH, no wall motion abnormalities, grade I diastolic dysfunction, LA severe dilation and severe AR. EF WNL as per cardio. Carotid duplex was negative for stenoses. Was seen by cardio and neuro, pt had f /u 2 months prior. ER course was notable for: (1) orthostatic (-) (2) (3) Recent Travel: denies PAST MEDICAL HISTORY: as above PAST SURGICAL HISTORY: PPM placement 06/2017 Social History: moved here from [place] in 1977. 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 quit 4-5 yrs ago Drugs: denies Family History: mother -HTN, at age 90 Allergies No Known Allergies Allergy (Verified 10/15/18 17:37) HOME MEDICATIONS: Home Medications Medication Instructions Recorded Tamsulosin HCl [Flomax] 0.4 mg PO DAILY 08/30/17 Aspirin Coated [Ecotrin -] 81 mg PO DAILY tablet.ec 09/02/17 Finasteride [Proscar] 5 mg PO DAILY #30 tablet 09/02/17 Phenytoin Na Extended [Dilantin -] 100 mg PO TID #100 capsule 09/02/17 need to confirm meds with pharmacy and son in AM REVIEW OF SYSTEMS CONSTITUTIONAL: Absent: fever, chills, diaphoresis, generalized weakness, malaise, loss of appetite, weight change HEENT: Absent: rhinorrhea, nasal congestion, throat pain, throat swelling, difficulty swallowing, mouth swelling, ear pain, eye pain, visual changes CARDIOVASCULAR: Absent: chest pain, syncope, palpitations, irregular heart rate, lightheadedness , peripheral edema RESPIRATORY: Absent: cough, shortness of breath, dyspnea with exertion, orthopnea, wheezing, stridor, hemoptysis GASTROINTESTINAL: Absent: abdominal pain, abdominal distension, nausea, vomiting, diarrhea, constipation, melena, hematochezia GENITOURINARY: Absent: dysuria, frequency, urgency, hesitancy, hematuria, flank pain, genital pain MUSCULOSKELETAL: Absent: myalgia, arthralgia, joint swelling, back pain, neck pain SKIN: Absent: rash, itching, pallor HEMATOLOGIC/IMMUNOLOGIC: Absent: easy bleeding, easy bruising, lymphadenopathy, frequent infections ENDOCRINE: Absent: unexplained weight gain, unexplained weight loss, heat intolerance, cold intolerance NEUROLOGIC: +lightheadedness, unsteady gait Absent: headache, focal weakness or paresthesias, dizziness, seizure, mental status changes, bladder or bowel incontinence PSYCHIATRIC: Absent: anxiety, depression, suicidal or homicidal ideation, hallucinations. PHYSICAL EXAMINATION Vital Signs - 24 hr 10/15/18 10/15/18 17:04 20:44 Temperature 97.7 F Pulse Rate 76 Pulse Rate [ 61 Radial] Respiratory 16 20 Rate Blood Pressure 102/77 Blood Pressure 107/77 [Right Arm] O2 Sat by Pulse 100 99 Oximetry (%) GENERAL: Resting comfortably in bed. Pleasant. Thin , [facility] in no acute distress. HEAD: Normal with no signs of trauma. EYES: Pupils equal, round and reactive to light, extraocular movements intact, sclera anicteric, conjunctiva clear. EARS, NOSE, THROAT: Ears normal, nares patent, oropharynx clear without exudates. Moist mucous membranes. NECK: Normal range of motion, supple . no cervical lymphadenopathy . LUNGS: Breath sounds equal, clear to auscultation bilaterally. No wheezes, and no crackles. No accessory muscle use. HEART: +paced rate and rhythm, normal S1 and S2 without murmur, rub or gallop. ABDOMEN: Soft, nontender, not distended, normoactive bowel sounds, no guarding, no rebound. LOWER EXTREMITIES: 2+ pt pulses, warm, well-perfused. No calf tenderness. No peripheral edema. NEUROLOGICAL: Cranial nerves II-XII intact. Sensation intact. No dysmetria . 5/ 5 motor strength UE, LE. Gait: favors L side PSYCHIATRIC: Cooperative. SKIN: Warm, dry Laboratory Results 10/15/18 10/15/18 17:40 18:54 WBC 2.3 L Hgb 12.9 Hct 37.4 Plt Count 159 D Sodium 141 Potassium 4.3 Anion Gap 6 L BUN 15 Creatinine 1.0 AST 18 ALT 19 Troponin I < 0.02 Past reports ECHO 08/2017: moderate asymmetric LVH. LV systolic function normal. no regional wall motion abnormalities. EA reversal suggests impaired relaxation with grade 1 diastolic dysfunction with elevated filling pressure. pacemaker event in RV. LA severely dilated, moderate MR, severe pulmonic regurg. Current visit 10/15/18: Head CT: negative for acute change. chronic small vessel ischemia 10/15/18: EKG: atrial paced, LBBB 10/16/18: Carotid duplex: taken, report pending ASSESSMENT/PLAN: 83 y/o M with PMH HLD, sz disorder, BPH, pacemaker placement - [employer] 07/02, who presented to the ED c/o lightheadedness and instability while walking for the past day. #Lightheadedness, gait instability -likely 2/2 dilantin toxicity, UTI, BPH meds - proscar, flomax other differentials include CVA/TIA, pre-vasovagal syncope, seizure, cardiac -orthostatic (-) while in ED -will hold dilantin as level supratherapeutic. can cause dizziness -will tx UTI with rocephin -f/u ECHO, carotid duplex in case of TIA/CVA -trend trops, first is (-) -c/w asa 81mg qd -will consult cardio: Dr. Aguilera. has seen in past. may need pacemaker interrogation -neuro consult: Dr. Barkley. seen in past. will decide whether pt needs brain CTA to check for ischemic infarct. cannot get brain MRI as has pacemaker #BPH -will hold flomax, proscar for now, as may be contributing to gait instability -f/u urology consult: Dr. Burton #Leukopenia -can be 2/2 infection, with UTI. could also be 2/2 malnutrition -continue to trend #HLD -f/u lipid panel , then can start on statin #sz disorder -hold dilantin as supratherapeutic level -f/u neuro recs: Dr. Barkley -sz precautions #F/E/N no IVF indicated at this time continue to follow lytes NPO until S/S consult #PPX DVT: lovenox #Dispo tele obs Visit type - Emergency Visit Emergency Visit: Yes ED Registration Date: 10/15/18 Care time: The patient presented to the Emergency Department on the above date and was hospitalized for further evaluation of their emergent condition. - New Patient This patient is new to me today: Yes Date on this admission: 10/16/18 - Critical Care Critical Care patient: No
[2018-10-16 00:01] LABS: BASO % 0.7 % (0-2.0); EOS % 2.1 % (0-4.5); HEMATOCRIT 36.5 % (35.4-49); HEMOGLOBIN 12.7 GM/dL (11.7-16.9); LYMPH % 48.6 % (8-40); MCH 33.1 pg (25.7-33.7); MCHC 34.8 g/dl (32.0-35.9); MEAN CELL VOLUME 95.1 fl (80-96); MEAN PLT VOLUME 7.5 fl (7.5-11.1); MONO % 11.1 % (3.8-10.2); NEUT % 37.5 % (42.8-82.8); PLATELET COUNT 160 K/MM3 (134-434); RBC 3.84 M/mm3 (4.00-5.60); RDW 13.7 % (11.9-15.9); WHITE BLOOD COUNT 2.2 K/mm3 (4.0-10.0)
[2018-10-16] MEDS ORDERED: ACETAMINOPHEN 325 MG TABLET (FP) PO ONE (03:00)
[2018-10-16 04:38] LABS: URINE APPEARANCE CLEAR; URINE BILIRUBIN NEGATIVE (<2.0 mg/dL); URINE COLOR YELLOW; URINE GLUCOSE (UA) NEGATIVE (NEGATIVE); URINE KETONE NEGATIVE (NEGATIVE); URINE LEUK ESTERASE 1+ (NEGATIVE); URINE NITRITE NEGATIVE (NEGATIVE); URINE PROTEIN NEGATIVE (NEGATIVE); URINE UROBILINOGEN 4.0 E.U/dl mg/dL (0.2-1.0)
[2018-10-16 04:46] LABS: EPI CELLS RARE /HPF (FEW); URINE BACTERIA FEW /hpf (NONE SEEN); URINE MUCUS MODERATE
[2018-10-16] MEDS ORDERED: cefTRIAXone SODIUM 1 GM VIAL ONE ×2 (05:55→09:01)
[2018-10-16] MEDS ORDERED: DEXTROSE 5%-WATER - 50 ML IVPB ONE ×2 (05:56→09:02)
[2018-10-16] MEDS: CEFTRIAXONE 1 GM in DEXTROSE 5%-WATER - 50 ML IVPB SCH (05:59)
[2018-10-16] MEDS ORDERED: PHENYTOIN NA EXTENDED 100 MG CAPSULE (FP) PO SCH (06:00)
[2018-10-16 07:07] LABS: BASO % 0.4 % (0-2.0); EOS % 1.6 % (0-4.5); HEMATOCRIT 34.7 % (35.4-49); LYMPH % 36.1 % (8-40); MCH 32.4 pg (25.7-33.7); MCHC 34.5 g/dl (32.0-35.9); MEAN CELL VOLUME 93.9 fl (80-96); MEAN PLT VOLUME 7.7 fl (7.5-11.1); MONO % 11.9 % (3.8-10.2); PLATELET COUNT 161 K/MM3 (134-434); RBC 3.69 M/mm3 (4.00-5.60); RDW 13.8 % (11.9-15.9); WHITE BLOOD COUNT 2.4 K/mm3 (4.0-10.0)
[2018-10-16 07:33] LABS: ANION GAP 2 MMOL/L (8-16); BLOOD UREA NITROGEN 11 mg/dL (7-18); CALCIUM 8.1 mg/dL (8.5-10.1); CHLORIDE 104 mmol/L (98-107); CHOLESTEROL 217 mg/dL (50-200); CO2 32 mmol/L (21-32); CREATININE 0.8 mg/dL (0.55-1.3); GLUCOSE,RANDOM 86 mg/dL (74-106); HDL CHOLESTEROL 77 mg/dL (40-60); PHOSPHOROUS 3.6 mg/dL (2.5-4.9); POTASSIUM 3.9 mmol/L (3.5-5.1); SODIUM 139 mmol/L (136-145); TRIGLYCERIDES 67 mg/dL (0-150)
--- NOTE | 2018-10-16 07:59 | PN ---
Teaching Attending Note Name of Resident: Shantelle Wesley ATTENDING PHYSICIAN STATEMENT I saw and evaluated the patient. I reviewed the resident's note and discussed the case with the resident. I agree with the resident's findings and plan as documented. SUBJECTIVE: Patient feels better but still feels slightly lightheaded. No fever or chills. OBJECTIVE: Initial Vital Signs Temp Pulse Resp BP Pulse Ox 97.7 F 76 16 102/77 100 10/15/18 17:04 10/15/18 17:04 10/15/18 17:04 10/15/18 17:04 10/15/18 17:04 HEENT: No Jaundice, PERRLA, EOMI. No nystagmus. Normocephalic, atraumatic. Neck: Supple, nontender. No palpable adenopathy or thyromegaly. No JVD Chest: CTA BL. Clear to auscultation and percussion. Heart: RRR, S1S2 positive , no rub or murmur appreciated. Abdomen: positive BS, Not distended, soft, nontender. No rebound or guarding. Ext: Peripheral pulses intact. No leg edema. Skin: Warm and dry. No petechiae, rash or ecchymosis. Neuro: Alert. Oriented to person and place. CN 2-12 grossly intact. Unsteady gait, favours the left side. Vital Signs Temperature 97.6 F 10/16/18 06:00 Pulse Rate 61 10/16/18 06:00 Respiratory Rate 20 10/16/18 06:00 Blood Pressure 128/60 10/16/18 06:00 O2 Sat by Pulse Oximetry (%) 96 10/16/18 02:43 CBCD WBC 2.4 K/mm3 (4.0-10.0) L 10/16/18 06:00 RBC 3.69 M/mm3 (4.00-5.60) L 10/16/18 06:00 Hgb 12.0 GM/dL (11.7-16.9) 10/16/18 06:00 Hct 34.7 % (35.4-49) L 10/16/18 06:00 MCV 93.9 fl (80-96) 10/16/18 06:00 MCHC 34.5 g/dl (32.0-35.9) 10/16/18 06:00 RDW 13.8 % (11.9-15.9) 10/16/18 06:00 Plt Count 161 K/MM3 (134-434) 10/16/18 06:00 MPV 7.7 fl (7.5-11.1) 10/16/18 06:00 CMP Sodium 139 mmol/L (136-145) 10/16/18 06:00 Potassium 3.9 mmol/L (3.5-5.1) 10/16/18 06:00 Chloride 104 mmol/L (98-107) 10/16/18 06:00 Carbon Dioxide 32 mmol/L (21-32) 10/16/18 06:00 Anion Gap 2 MMOL/L (8-16) L 10/16/18 06:00 BUN 11 mg/dL (7-18) 10/16/18 06:00 Creatinine 0.8 mg/dL (0.55-1.3) 10/16/18 06:00 Creat Clearance w eGFR > 60 (>60) 10/16/18 06:00 Random Glucose 86 mg/dL (74-106) 10/16/18 06:00 Calcium 8.1 mg/dL (8.5-10.1) L 10/16/18 06:00 Total Bilirubin 0.3 mg/dL (0.2-1) 10/15/18 18:54 AST 18 U/L (15-37) 10/15/18 18:54 ALT 19 U/L (13-61) 10/15/18 18:54 Alkaline Phosphatase 100 U/L (45-117) 10/15/18 18:54 Total Protein 7.2 g/dl (6.4-8.2) 10/15/18 18:54 Albumin 3.6 g/dl (3.4-5.0) 10/15/18 18:54 CARDIAC ENZYMES Creatine Kinase 111 U/L (26-308) 10/15/18 18:54 Troponin I < 0.02 ng/ml (0.00-0.05) 10/15/18 18:54 Current Medications Generic Name Dose Route Start Last Admin Trade Name Freq PRN Reason Stop Dose Admin Aspirin 81 mg 10/16/18 10:00 Ecotrin - PO DAILY [facility] Enoxaparin Sodium 40 mg 10/16/18 10:00 Lovenox - SQ DAILY [facility] Ceftriaxone Sodium 1 gm/ 50 mls @ 100 mls/hr 10/16/18 05:30 10/16/18 05:59 Dextrose IVPB 100 mls/hr DAILY [facility] Administration Phenytoin Sodium 100 mg 10/16/18 06:00 Dilantin - PO TID [facility] Home Medications Medication Instructions Recorded Tamsulosin HCl [Flomax] 0.4 mg PO DAILY 08/30/17 Aspirin Coated [Ecotrin -] 81 mg PO DAILY tablet.ec 09/02/17 Finasteride [Proscar] 5 mg PO DAILY #30 tablet 09/02/17 Phenytoin Na Extended [Dilantin -] 100 mg PO TID #100 capsule 09/02/17 Laboratory Tests 10/15/18 23:48 Phenytoin 37.9 H* Laboratory Tests 10/16/18 06:00 Cholesterol 217 H Total LDL Cholesterol 120 H HDL Cholesterol 77 H 10/15/18: Head CT: negative for acute change. chronic small vessel ischemia 10/15/18: EKG: atrial paced, LBBB 10/16/18: Carotid duplex: negative. ASSESSMENT AND PLAN: Patient is a 83yo male with PMHx of HLD, sz disorder, BPH, pacemaker placement , [employer] 07/02, who presented to the ED c/o lightheadedness and instability while walking for the past day. #Lightheadedness, gait instability most likely due to dilantin toxicity/ medications such as BPH meds. # Acute UTI, on IV Rocephin #BPH: Flomax, Proscar is on hold for possible causing gait instability, f/u with urology Dr. Burton #Leukopenia with UTI. on IV antibiotic continue #HLD will add lipitor 10mg po daily #Sz disorder supratherapeutic will continue to hold dilantin, neurology consult desmond Headley precautions DVT PPX: lovenox
--- NOTE | 2018-10-16 09:41 | CONSULT ---
Consult - text type - Consultation Consultation Note: Neurology CHIEF COMPLAINT: lightheadedness, difficulty ambulating x 1 day HISTORY OF PRESENT ILLNESS: 83 y/o M with PMH HLD, sz disorder, BPH, pacemaker placement - [employer] 07/02, who presented to the ED c/o lightheadedness and instability while ambulating for the past day. States that he felt "very weak and bad." Reportedly episode of "shaking" but no fall, LOC, tongue biting, or urinary or bowel incontinence. Reported that he continued to feel unwell, thus his son and fiance brought him to the ED for further evaluation. During this time, pt also endorses a generalized, bifrontal SANTIAGO. Denied recent illnesses, SANTIAGO, fever, chills, SOB, chest pain or pressure, or changes in urinary or bowel function. No recent medication changes. Pt lives with his son and herbert. At baseline, ambulates on own. Of note, pt was hospitalized here in 2017 with similar sx/presyncope, underwent ECHO which revealed moderate asymmetric LVH, no wall motion abnormalities, grade I diastolic dysfunction, LA severe dilation and severe OR. EF WNL as per cardio. On this admission, CT head was completed and did not show any acute changes. Carotid Dopplers also reviewed and without hemodynamically significant stenosis. The patient reports no complaints at this time and is at baseline. He was in the process of having a repeat echo at bedside. Of note, Dilantin level of 37.9 on admission, likely etiology of gait instability. Recent Travel: denies PAST MEDICAL HISTORY: as above PAST SURGICAL HISTORY: PPM placement 06/2017 Social History: moved here from [place] in 1977. used to work in a [employer] in [place] Smoking: denies Alcohol: used to "drink heavily" - rum in past, unable to quantify . quit 4-5 yrs ago Drugs: denies Family History: mother -HTN, at age 90 Allergies No Known Allergies Allergy (Verified 10/15/18 17:37) HOME MEDICATIONS: Home Medications Medication Instructions Recorded Tamsulosin HCl [Flomax] 0.4 mg PO DAILY 08/30/17 Aspirin Coated [Ecotrin -] 81 mg PO DAILY tablet.ec 09/02/17 Finasteride [Proscar] 5 mg PO DAILY #30 tablet 09/02/17 Phenytoin Na Extended [Dilantin -] 100 mg PO TID #100 capsule 09/02/17 need to confirm meds with pharmacy and son in AM REVIEW OF SYSTEMS CONSTITUTIONAL: Absent: fever, chills, diaphoresis, generalized weakness, malaise, loss of appetite, weight change HEENT: Absent: rhinorrhea, nasal congestion, throat pain, throat swelling, difficulty swallowing, mouth swelling, ear pain, eye pain, visual changes CARDIOVASCULAR: Absent: chest pain, syncope, palpitations, irregular heart rate, lightheadedness , peripheral edema RESPIRATORY: Absent: cough, shortness of breath, dyspnea with exertion, orthopnea, wheezing, stridor, hemoptysis GASTROINTESTINAL: Absent: abdominal pain, abdominal distension, nausea, vomiting, diarrhea, constipation, melena, hematochezia GENITOURINARY: Absent: dysuria, frequency, urgency, hesitancy, hematuria, flank pain, genital pain MUSCULOSKELETAL: Absent: myalgia, arthralgia, joint swelling, back pain, neck pain SKIN: Absent: rash, itching, pallor HEMATOLOGIC/IMMUNOLOGIC: Absent: easy bleeding, easy bruising, lymphadenopathy, frequent infections ENDOCRINE: Absent: unexplained weight gain, unexplained weight loss, heat intolerance, cold intolerance NEUROLOGIC: +lightheadedness, unsteady gait Absent: headache, focal weakness or paresthesias, dizziness, seizure, mental status changes, bladder or bowel incontinence PSYCHIATRIC: Absent: anxiety, depression, suicidal or homicidal ideation, hallucinations. PHYSICAL EXAMINATION Vital Signs - 24 hr 10/15/18 10/15/18 17:04 20:44 Temperature 97.7 F Pulse Rate 76 Pulse Rate [ 61 Radial] Respiratory 16 20 Rate Blood Pressure 102/77 Blood Pressure 107/77 [Right Arm] O2 Sat by Pulse 100 99 Oximetry (%) GENERAL: Resting comfortably in bed. Pleasant. Thin , AAOx2 (name, [facility]) in no acute distress. HEAD: Normal with no signs of trauma. EYES: Pupils equal, round and reactive to light, extraocular movements intact, sclera anicteric, conjunctiva clear. EARS, NOSE, THROAT: Ears normal, nares patent, oropharynx clear without exudates. Moist mucous membranes. NECK: Normal range of motion, supple . no cervical lymphadenopathy . LUNGS: Breath sounds equal, clear to auscultation bilaterally. No wheezes, and no crackles. No accessory muscle use. HEART: +paced rate and rhythm, normal S1 and S2 without murmur, rub or gallop. ABDOMEN: Soft, nontender, not distended, normoactive bowel sounds, no guarding, no rebound. LOWER EXTREMITIES: 2+ pt pulses, warm, well-perfused. No calf tenderness. No peripheral edema. NEUROLOGICAL: Cranial nerves II-XII intact. Sensation intact. No dysmetria . 5/ 5 motor strength UE, LE. Gait: aantalgic and favors the left PSYCHIATRIC: Cooperative. SKIN: Warm, dry Laboratory Results 10/15/18 10/15/18 17:40 18:54 WBC 2.3 L Hgb 12.9 Hct 37.4 Plt Count 159 D Sodium 141 Potassium 4.3 Anion Gap 6 L BUN 15 Creatinine 1.0 AST 18 ALT 19 Troponin I < 0.02 Past reports ECHO 08/2017: moderate asymmetric LVH. LV systolic function normal. no regional wall motion abnormalities. EA reversal suggests impaired relaxation with grade 1 diastolic dysfunction with elevated filling pressure. pacemaker event in RV. LA severely dilated, moderate MR, severe pulmonic regurg. Current visit 10/15/18: Head CT: negative for acute change. chronic small vessel ischemia 10/15/18: EKG: atrial paced, LBBB 10/16/18: Carotid duplex: no hemodynamically significant stenosis ASSESSMENT/PLAN: 83 y/o M with PMH HLD, sz disorder, BPH, pacemaker placement - [employer] 07/02, who presented to the ED c/o lightheadedness and instability while walking for the past day. Does not seem to be due to seizure more likely secondary to Dilantin toxicity. Hold Dilantin, repeat daily Dilantin level, when level reaches below 20, can restart medication at home dose of [address] head negative, ccannot have MRI due to pacemaker. Cardiology follow-up recommended. monitor for seizure activity though unlikely with Dilantin supratherapeutic. Patient also with urinary tract infection, continue antibiotics. Maintain adequate hydration, fall precautions. Physical therapy recommended.
--- NOTE | 2018-10-16 10:25 | CONSULT ---
Admitting History and Physical - Primary Care Physician PCP: Manjit Cespedes - Admission History of Present Illness: 83 y/o M with PMH HLD, sz disorder, BPH, pacemaker placement - [employer] 07/02, who presented to the ED c/o lightheadedness and instability while walking likely 2/2 dilantin toxicity per EMR. Selected Entries 10/16/18 10/16/18 10/16/18 02:43 06:00 09:38 Breakfast 100% Temperature 97.3 F L 97.6 F Laboratory Tests 10/16/18 06:00 WBC 2.4 L Pt reported to have tolerated regular breakfast well this morning. History Source: Patient, Medical Record - Past Medical History Cardiovascular: Yes: Other (Pacemaker implantation (patient is not sure which company)) - Past Surgical History Past Surgical History: Yes: Permanent Pacemaker - Smoking History Smoking history: Never smoked Have you smoked in the past 12 months: No - Alcohol/Substance Use Hx Alcohol Use: No History - Admission Reason For Visit: LIGHTHEADEDNESS - Diagnostics X-ray: Report Reviewed CT Scan: Report Reviewed - General Mental Status: Alert and Oriented, Awake and Alert, Able to Follow Commands, Forgetful (suspected) Attention: Intact Ability to Follow Directions: Good Head/Neck Control: Fair - Hearing Hearing: Normal Speech Evaluation - Communication Primary Language: DANISH Communication: Yes: Within Normal Limits - Speech Production Able to Make Needs Known: Yes: WNL Intelligibility: Yes: Mildly Impaired - Speech Characteristics Voice Loudness: Normal Voice Pitch: Yes: Normal Voice Phonatory-based Quality: Yes: Normal Speech Clarity: < 75% (rapid) Nasal Resonance: Normal - Language/Auditory Comprehension Follows: Yes: 1 Stage Simple Commands - Language/Verbal Expression Able to Communicate Wants and Needs: Yes: WNL Functional Communication Status: Yes: WNL - Swallow Evaluation/Bedside Assessment Current Nutritional Intake: Regular, Thin Liquids Oral Secretions: Yes: WFL Dentition: Yes: Edentulous (lower), Missing Teeth (upper) Facial Symmetry at Rest: Symmetrical Facial Symmetry on Retraction: Symmetrical Facial Movement: Controlled Against Resistance Opening: Normal Against Resistance Closing: Normal Pucker Lips: Normal Smile: Normal Lingual Movement: Normal, Symmetric Lingual Speed of Movement: Normal Lingual Movement Strgth Against Opposition: Normal Lingual Movement Characteristics: Normal Laryngeal Elevation: WFL Laryngeal Movement: Able to Palpate Rate of Intake: WFL Bolus Size: WFL Labial Seal: WFL Chewing: WFL Oral Prep Time: WFL A-P Transit: WFL Pocketing: None Timing of Swallow: WFL Coughing/Throat Clear: No Change in Voice: No Recommendations - Speech Evaluation, Impression/Plan Impression: Rapid speech, adversely affects intelligibility,likely baseline. Grossly oriented.Mastication/Swallowing overtly intact. - Dysphagia Impressions/Plan Swallowing Skills: WFL Dysphagia Impressions: No Impairment *Silent aspiration: cannot be R/O at bedside Recommendations: Other (Monitor po tolerance) - Recommendations Diet Consistency: Regular Medication Administration: Whole with water Liquids: Thin Liquids
[2018-10-16] MEDS: ENOXAPARIN NA (PORCINE) 40 MG/0.4 ML DISP.SYRIN SQ SCH (10:39)
[2018-10-16] MEDS: ASPIRIN COATED 81 MG TABLET.EC PO SCH (10:39)
--- NOTE | 2018-10-16 11:52 | CON.CARD ---
Consult Consult Specialty:: Cardiology Referred by:: Hospitalist Medicine Reason for Consultation:: Near syncope - History of Present Illness Chief Complaint: Near syncope History of Present Illness: 83 y/o M with PMH HLD, sz disorder, BPH, sick sinus syndrome post dual chamber pacemaker placement, Luann 07/02, last seen in office 04/25/2018 who presented to the ED c/o lightheadedness, dizziness, generalized weakness and instability while ambulating for the past day. He denies vision change, tinnitus , nausea, vomiting, chills, diaphoresis, palpitations, chest pain, SOB, urinary complaints, abdominal pain or changes in bowel habits. CT head was completed and did not show any acute changes. Carotid Dopplers also reviewed and without hemodynamically significant stenosis. Dilantin levels elevated. The patient reports no complaints at this time and is at baseline. Telemetry shows AV pacing. - History Source History Provided By: Patient Limitations to Obtaining History: No Limitations - Past Medical History Cardio/Vascular: Yes: Other (Pacemaker implantation (patient is not sure which company)) - Past Surgical History Past Surgical History: Yes: Permanent Pacemaker - Alcohol/Substance Use Hx Alcohol Use: No - Smoking History Smoking history: Never smoked Have you smoked in the past 12 months: No Home Medications - Allergies Allergies/Adverse Reactions: Allergies Allergy/AdvReac Type Severity Reaction Status Date / Time No Known Allergies Allergy Verified 10/15/18 17:37 - Home Medications Home Medications: Ambulatory Orders Tamsulosin HCl [Flomax] 0.4 mg PO DAILY 08/30/17 Aspirin Coated [Ecotrin -] 81 mg PO DAILY tablet.ec 09/02/17 Finasteride [Proscar] 5 mg PO DAILY #30 tablet 09/02/17 Phenytoin Na Extended [Dilantin -] 100 mg PO TID #100 capsule 09/02/17 Review of Systems - Review of Systems Neurological: reports: Dizziness, Unsteady Gait Vital Signs: Vital Signs Temperature 97.9 F 10/16/18 10:00 Pulse Rate 64 10/16/18 10:00 Respiratory Rate 16 10/16/18 10:00 Blood Pressure 151/66 10/16/18 10:00 O2 Sat by Pulse Oximetry (%) 96 10/16/18 02:43 Constitutional: Yes: No Distress, Calm Neck: Yes: Supple Respiratory: Yes: Regular, CTA Bilaterally Gastrointestinal: Yes: Normal Bowel Sounds, Soft Cardiovascular: Yes: Regular Rate and Rhythm JVD: No Carotid Bruit: No Heart Sounds: Yes: S1, S2 Edema: No - Other Data Labs, Other Data: CBC, BMP 10/16/18 06:00 10/16/18 06:00 Troponin, BNP 10/15/18 10/15/18 17:40 18:54 Troponin I Cancelled < 0.02 Troponin, BNP 10/15/18 10/15/18 17:40 18:54 Troponin I Cancelled < 0.02 A-V paced @ 60 Ejection Fraction %: LVEF > or = 40 % Problem List - Problems (1) Diastolic dysfunction without heart failure Code(s): I51.89 - OTHER ILL-DEFINED HEART DISEASES (2) Abnormal cardiovascular function study Code(s): R94.30 - ABNORMAL RESULT OF CARDIOVASCULAR FUNCTION STUDY, UNSP (3) Chest pain Code(s): R07.9 - CHEST PAIN, UNSPECIFIED Qualifiers: Chest pain type: unspecified Qualified Code(s): R07.9 - Chest pain, unspecified (4) Lightheadedness Code(s): R42 - DIZZINESS AND GIDDINESS (5) Hypercholesterolemia Code(s): E78.00 - PURE HYPERCHOLESTEROLEMIA, UNSPECIFIED (6) Phenytoin toxicity Code(s): T42.0X1A - POISONING BY HYDANTOIN DERIVATIVES, ACCIDENTAL, INIT Qualifiers: Encounter type: initial encounter (7) Presence of permanent cardiac pacemaker Code(s): Z95.0 - PRESENCE OF CARDIAC PACEMAKER (8) Sick sinus syndrome Code(s): I49.5 - SICK SINUS SYNDROME Assessment/Plan Past reports ECHO 08/2017: moderate asymmetric LVH. LV systolic function normal. no regional wall motion abnormalities. EA reversal suggests impaired relaxation with grade 1 diastolic dysfunction with elevated filling pressure. pacemaker event in RV. LA severely dilated, moderate MR, severe pulmonic regurg. 01/31/2018 MPI: Small zone mild inferobasal ischemia, LVEF 64% Current visit 10/15/18: Head CT: negative for acute change. chronic small vessel ischemia 10/15/18: EKG: A-V paced 10/16/18: Carotid duplex: no hemodynamically significant stenosis 1. Near syncope and gait instability due to Dilantin toxicity 2. Sick sinus syndrome s/p dual chamber pacemaker implantation ([employer]) 3. Hypercholesterolemia 4. Seizure d/o, unlikely recurrence 5. UTI 6. Chest pain syndrome with mildly abnormal MPI 7. Diastolic dysfunction - euvolemic 8. Cerebrovascular disease PLAN: 1. ASA 81 qd, resume Crestor 10 qd, Toprol XL 12.5 qd 2. Device check as outpatient 3. Complete empiric abx course 4. PT for gait training, resume Dilantin once serum levels decrease to acceptable levels 5. Thank you for consultative opportunity
--- NOTE | 2018-10-16 12:29 | ECHO ---
Name: MARK ANTHONYYUNGJUANCARLOS Exam:Adult Echocardiogram Study Date: 10/16/2018 09:08 AM Age: 83 yrs Reason For Study: R/O CVA Height: 66 in Weight: 152 lb BSA: 1.8 m2 MMode/2D Measurements & Calculations IVSd: 1.4 cm Ao root diam: 4.4 cm LVIDd: 3.9 cm LA dimension: 4.7 cm LVIDs: 2.4 cm ACS: 2.4 cm LVPWd: 1.1 cm IVSs: 1.4 cm LVPWs: 1.7 cm EDV(Teich): 67.4 ml ESV(Teich): 20.2 ml Doppler Measurements & Calculations MV E max fortunato: 72.3 cm/sec AI P1/2t: 287.9 msec MV A max fortunato: 116.7 cm/sec MV E/A: 0.62 AI max fortunato: 214.3 cm/sec MR max fortunato: 456.1 cm/sec AI max P.4 mmHg MR max P.2 mmHg AI dec slope: 218.1 cm/sec2 TR max fortunato: 240.6 cm/sec PA V2 max: 165.6 cm/sec TR max P.2 mmHg PA max P.0 mmHg PA V2 mean: 88.2 cm/sec PA mean P.0 mmHg PA V2 VTI: 34.5 cm PI end-d fortunato: 128.3 cm/sec Med Peak E' Fortunato: 3.7 cm/sec Med E/e': 19.5 Lat Peak E' Fortunato: 4.4 cm/sec Lat E/e': 16.5 Procedure A complete two-dimensional transthoracic echocardiogram was performed (2D, M-mode, Doppler and color flow Doppler). Left Ventricle There is moderate concentric left ventricular hypertrophy. The left ventricular ejection fraction is normal. Ejection Fraction = 60-65%. The left ventricular wall motion is normal. Right Ventricle The right ventricle is normal in size and function. Atria The left atrium is moderately dilated. Right atrial size is normal. Mitral Valve There is mild mitral regurgitation. Tricuspid Valve There is mild tricuspid regurgitation. Right ventricular systolic pressure is normal. Aortic Valve The aortic valve is trileaflet. No hemodynamically significant valvular aortic stenosis. Mild aortic regurgitation. Pulmonic Valve Moderate pulmonic valvular regurgitation. Great Vessels Moderate aortic root dilatation. Pericardium/Pleura There is no pericardial effusion. Interpretation Summary The left ventricular ejection fraction is normal. There is moderate concentric left ventricular hypertrophy. The right ventricle is normal in size and function. The left atrium is moderately dilated. There is mild mitral regurgitation. There is mild tricuspid regurgitation. Mild aortic regurgitation. Moderate pulmonic valvular regurgitation. Moderate aortic root dilatation. MD Craig Bolton 10/16/2018 12:28 PM
[2018-10-16] MEDS: metoPROLOL SUCCINATE 25 MG TAB.SR.24H (FP) PO SCH (13:21)
--- NOTE | 2018-10-16 14:14 | EKG ---
Test Reason : Blood Pressure : / mmHG Vent. Rate : 060 BPM Atrial Rate : 060 BPM P-R Int : 000 ms QRS Dur : 154 ms QT Int : 452 ms P-R-T Axes : -26 069 -57 degrees QTc Int : 452 ms Atrial-paced rhythm with prolonged AV conduction LEFT BUNDLE BRANCH BLOCK ABNORMAL ECG WHEN COMPARED WITH ECG OF 06-MAY-2018 13:46, ELECTRONIC ATRIAL PACEMAKER HAS REPLACED ELECTRONIC VENTRICULAR PACEMAKER Confirmed by ORLANDO MERCHANT, DILEEP ([id number]) on 10/16/2018 2:14:20 PM Referred By: Confirmed By:DILEEP PERRY MD
--- NOTE | 2018-10-16 14:51 | PN ---
Physical Exam: SUBJECTIVE: Patient seen and examined at bedside. No acute events overnight. Pt feels better, has no chest pain, sob, dizziness. Feels as if he is at his baseline. Denies seizure overnight. OBJECTIVE: Last Vital Signs Temp Pulse Resp BP Pulse Ox 97.9 F 64 16 151/66 96 10/16/18 10:00 10/16/18 10:00 10/16/18 10:00 10/16/18 10:00 10/16/18 06:57 GENERAL: Resting comfortably in bed. Pleasant. Thin, AAOx2 (name, [facility]) in no acute distress. HEENT: AT/NC. EOMI. PENNY. Dry mucus membranes. NECK: Normal range of motion, supple. LUNGS: CTA B/L. No wheezes/crackles noted. No accessory muscle use. HEART: +paced rate and rhythm, tachycardic, normal S1 and S2 without murmur, rub or gallop. ABDOMEN: Soft, nontender, not distended, normoactive bowel sounds, no guarding, no rebound. LOWER EXTREMITIES: 2+ pt pulses, warm, well-perfused. No calf tenderness. No peripheral edema. NEUROLOGICAL: Cranial nerves II-XII intact. Sensation intact. No dysmetria . 5/ 5 motor strength UE, LE. Gait: favors L side PSYCHIATRIC: Cooperative. SKIN: Warm, dry. CBCD WBC 2.4 K/mm3 (4.0-10.0) L 10/16/18 06:00 RBC 3.69 M/mm3 (4.00-5.60) L 10/16/18 06:00 Hgb 12.0 GM/dL (11.7-16.9) 10/16/18 06:00 Hct 34.7 % (35.4-49) L 10/16/18 06:00 MCV 93.9 fl (80-96) 10/16/18 06:00 MCHC 34.5 g/dl (32.0-35.9) 10/16/18 06:00 RDW 13.8 % (11.9-15.9) 10/16/18 06:00 Plt Count 161 K/MM3 (134-434) 10/16/18 06:00 MPV 7.7 fl (7.5-11.1) 10/16/18 06:00 CMP Sodium 139 mmol/L (136-145) 10/16/18 06:00 Potassium 3.9 mmol/L (3.5-5.1) 10/16/18 06:00 Chloride 104 mmol/L (98-107) 10/16/18 06:00 Carbon Dioxide 32 mmol/L (21-32) 10/16/18 06:00 Anion Gap 2 MMOL/L (8-16) L 10/16/18 06:00 BUN 11 mg/dL (7-18) 10/16/18 06:00 Creatinine 0.8 mg/dL (0.55-1.3) 10/16/18 06:00 Creat Clearance w eGFR > 60 (>60) 10/16/18 06:00 Calcium 8.1 mg/dL (8.5-10.1) L 10/16/18 06:00 Total Bilirubin 0.3 mg/dL (0.2-1) 10/15/18 18:54 AST 18 U/L (15-37) 10/15/18 18:54 ALT 19 U/L (13-61) 10/15/18 18:54 Alkaline Phosphatase 100 U/L (45-117) 10/15/18 18:54 Total Protein 7.2 g/dl (6.4-8.2) 10/15/18 18:54 Albumin 3.6 g/dl (3.4-5.0) 10/15/18 18:54 Active Medications Aspirin (Ecotrin -) 81 mg PO DAILY [facility] Last Admin: 10/16/18 10:39 Dose: 81 mg Enoxaparin Sodium (Lovenox -) 40 mg SQ DAILY [facility] Last Admin: 10/16/18 10:39 Dose: 40 mg Ceftriaxone Sodium 1 gm/ (Dextrose) 50 mls @ 100 mls/hr IVPB DAILY [facility] Last Admin: 10/16/18 05:59 Dose: 100 mls/hr Metoprolol Succinate (Toprol Xl -) 12.5 mg PO DAILY [facility] Last Admin: 10/16/18 13:21 Dose: 12.5 mg Phenytoin Sodium (Dilantin -) 100 mg PO TID [facility] Rosuvastatin Calcium (Crestor -) [address] [facility] IMAGING: Past reports ECHO 08/2017: moderate asymmetric LVH. LV systolic function normal. no regional wall motion abnormalities. EA reversal suggests impaired relaxation with grade 1 diastolic dysfunction with elevated filling pressure. pacemaker event in RV. LA severely dilated, moderate MR, severe pulmonic regurg. Current visit 10/15/18: Head CT: negative for acute change. chronic small vessel ischemia 10/15/18: EKG: atrial paced, LBBB 10/16/18: Carotid duplex: Mild atherosclerotic disease w/ no evid. of HD significant stenosis. 10/16/18: LA mod dilated. Mild MR. Mild TR. Mild AR. Mod. pulmonic valvular regurg. Mod aortic root regurg. ASSESSMENT/PLAN: 83 y/o M with pmhx HLD, sz disorder, BPH, pacemaker placement - [employer] 07/02 , who presented to the ED c/o lightheadedness and instability while walking for the past day. #Lightheadedness, gait instability -likely 2/2 Dilantin toxicity, UTI, BPH meds - Proscar, Flomax; unlikely seizure -Echo and carotid duplex noted above. -Per cardio, cont ASA 81 QD, resume Crestor 10 QD, Toprol XL 12.5 QD. Device check as outpatient. -Per neuro, hold Dilantin, repeat daily Dilantin level, when level reaches below 20, can restart medication at home dose of 100 three times a day -PT #UTI -U/A showed 1+ LE, WBC 35 -cont Ceftriaxone 1gm QD IVPB (started 10/15/18) #BPH -Hold Flomax, Proscar for now, as may be contributing to gait instability -f/u urology consult: Dr. Burton #Leukopenia -can be 2/2 infection, with UTI. could also be 2/2 malnutrition -continue to trend #HLD -Per cardio, will start Crestor 10 QD #Seizure disorder -Hold Dilantin as supratherapeutic level -sz precautions -Per neuro, check daily Dilantin level, when below 2, restart med at home does 100 TID #F/E/N -no IVF indicated at this time -continue to follow lytes -Sodium-controlled diet #PPX DVT: lovenox Dispo tele obs Visit type - Emergency Visit Emergency Visit: Yes ED Registration Date: 10/15/18 Care time: The patient presented to the Emergency Department on the above date and was hospitalized for further evaluation of their emergent condition. - New Patient This patient is new to me today: Yes Date on this admission: 10/16/18 - Critical Care Critical Care patient: No
--- NOTE | 2018-10-16 17:42 | CONS ---
DATE OF CONSULTATION: DATE OF DICTATION: 10/16/2018 REASON FOR CONSULTATION: BPH, question whether or not patient should be maintained on Flomax. HISTORY OF PRESENT ILLNESS: I was called earlier today about this elderly gentleman who has been on Flomax for the past 2 months. He was admitted because of the recent onset of dizziness. Patient described nocturia x2 which did not change when he was placed on the Flomax about 2 months ago. In addition, the dizziness only began earlier this week after he had been on the Flomax for quite some time with no ill effects. Finally, he has not received any Flomax for the past few days and continues to have some mild dizziness. In addition to the Flomax, I was told that he was also on finasteride, although I could not find that in the medical record. I did find that he was on oxybutynin an anticholinergic agent. PHYSICAL EXAMINATION: GENERAL: Patient had some varicosities below the abdominal surface. No testes were distended. Some firmness in the testes on the left side. RECTAL: Digital rectal exam revealed an enlarged soft smooth prostate which was not tender. In light of his continuing to experience dizziness, although he has not received any Flomax for at least 2 days, and the fact that his blood pressure has not shown any orthostatic changes suggest that the Flomax is not the cause for the dizziness. However, if he continues to experience dizziness, the alternative would be to put him on in place of the Flomax, silodosin beginning with 4 mg. This is generic Rapaflo. However, as the pat has his own urologist, I would suggest that this be done as an outpatient by his urologist. With respect to the oxybutynin, I would be hesitant to keep him on it. Oxybutynin has been shown to increase memory loss in the elderly patients and in addition will cause constipation and certainly if he is not also on an alpha alma like either the continuing of the tamsulosin or having it replaced with an alternative like silodosin, the oxybutynin runs the risk of throwing him into outright retention. Light might be shed on this by obtaining a post void residual with him off Flomax. If off the Flomax the residual is small, meaning less than 50 or 60 mL, he certainly could be watched for a longer period of time off the Flomax and not placed on the silodosin either, but again I would not keep him on the oxybutynin. With respect to the finasteride, I would place him on the finasteride if he is not already receiving it. If there are any questions, please feel free to reach me. You can reach me at [phone]. MD ELDON WANG/[id number]
[2018-10-16] MEDS: ROSUVASTATIN CA 10 MG TABLET (FP) PO SCH (21:19)
[2018-10-17 06:08] LABS: HEMATOCRIT 34.4 % (35.4-49); HEMOGLOBIN 11.9 GM/dL (11.7-16.9); MCH 32.6 pg (25.7-33.7); MCHC 34.7 g/dl (32.0-35.9); MEAN PLT VOLUME 7.8 fl (7.5-11.1); PLATELET COUNT 157 K/MM3 (134-434); RBC 3.66 M/mm3 (4.00-5.60); RDW 13.6 % (11.9-15.9); WHITE BLOOD COUNT 2.3 K/mm3 (4.0-10.0)
[2018-10-17 06:43] LABS: ANION GAP 3 MMOL/L (8-16); BLOOD UREA NITROGEN 12 mg/dL (7-18); CALCIUM 7.9 mg/dL (8.5-10.1); CHLORIDE 105 mmol/L (98-107); CO2 30 mmol/L (21-32); CREATININE 0.9 mg/dL (0.55-1.3); GLUCOSE,RANDOM 83 mg/dL (74-106); POTASSIUM 4.3 mmol/L (3.5-5.1); SODIUM 138 mmol/L (136-145)
--- NOTE | 2018-10-17 08:05 | PN ---
Teaching Attending Note Name of Resident: Shantelle Wesley ATTENDING PHYSICIAN STATEMENT I saw and evaluated the patient. I reviewed the resident's note and discussed the case with the resident. I agree with the resident's findings and plan as documented. SUBJECTIVE: Patient is a pleasant patient, feeling better. Gaitcontinues to be unsteady. OBJECTIVE: Vital Signs Temperature 98 F 10/17/18 06:00 Pulse Rate 61 10/17/18 06:00 Respiratory Rate 18 10/17/18 06:00 Blood Pressure 118/66 10/17/18 06:00 O2 Sat by Pulse Oximetry (%) 97 10/17/18 06:16 HEENT: No Jaundice, PERRLA, EOMI. No nystagmus. Normocephalic, atraumatic. Neck: Supple, nontender. No palpable adenopathy or thyromegaly. No JVD Chest: CTA BL. Clear to auscultation and percussion. Heart: RRR, S1S2 positive , no rub or murmur appreciated. Abdomen: positive BS, Not distended, soft, nontender. No rebound or guarding. Ext: Peripheral pulses intact. No leg edema. Skin: Warm and dry. No petechiae, rash or ecchymosis. Neuro: Alert. Oriented to person and place. CN 2-12 grossly intact. Unsteady gait continues , favours the left side. CBCD WBC 2.3 K/mm3 (4.0-10.0) L 10/17/18 05:10 RBC 3.66 M/mm3 (4.00-5.60) L 10/17/18 05:10 Hgb 11.9 GM/dL (11.7-16.9) 10/17/18 05:10 Hct 34.4 % (35.4-49) L 10/17/18 05:10 MCV 94.0 fl (80-96) 10/17/18 05:10 MCHC 34.7 g/dl (32.0-35.9) 10/17/18 05:10 RDW 13.6 % (11.9-15.9) 10/17/18 05:10 Plt Count 157 K/MM3 (134-434) 10/17/18 05:10 MPV 7.8 fl (7.5-11.1) 10/17/18 05:10 CMP Sodium 138 mmol/L (136-145) 10/17/18 05:10 Potassium 4.3 mmol/L (3.5-5.1) 10/17/18 05:10 Chloride 105 mmol/L (98-107) 10/17/18 05:10 Carbon Dioxide 30 mmol/L (21-32) 10/17/18 05:10 Anion Gap 3 MMOL/L (8-16) L 10/17/18 05:10 BUN 12 mg/dL (7-18) 10/17/18 05:10 Creatinine 0.9 mg/dL (0.55-1.3) 10/17/18 05:10 Creat Clearance w eGFR > 60 (>60) 10/17/18 05:10 Random Glucose 83 mg/dL (74-106) 10/17/18 05:10 Calcium 7.9 mg/dL (8.5-10.1) L 10/17/18 05:10 Total Bilirubin 0.3 mg/dL (0.2-1) 10/15/18 18:54 AST 18 U/L (15-37) 10/15/18 18:54 ALT 19 U/L (13-61) 10/15/18 18:54 Alkaline Phosphatase 100 U/L (45-117) 10/15/18 18:54 Total Protein 7.2 g/dl (6.4-8.2) 10/15/18 18:54 Albumin 3.6 g/dl (3.4-5.0) 10/15/18 18:54 CARDIAC ENZYMES Creatine Kinase 111 U/L (26-308) 10/15/18 18:54 Troponin I < 0.02 ng/ml (0.00-0.05) 10/15/18 18:54 Current Medications Generic Name Dose Route Start Last Admin Trade Name Freq PRN Reason Stop Dose Admin Aspirin 81 mg 10/16/18 10:00 10/16/18 10:39 Ecotrin - PO 81 mg DAILY JASON Administration Enoxaparin Sodium 40 mg 10/16/18 10:00 10/16/18 10:39 Lovenox - SQ 40 mg DAILY JASON Administration Ceftriaxone Sodium 1 gm/ 50 mls @ 100 mls/hr 10/16/18 05:30 10/16/18 05:59 Dextrose IVPB 100 mls/hr DAILY JASON Administration Metoprolol Succinate 12.5 mg 10/16/18 12:15 10/16/18 13:21 Toprol Xl - PO 12.5 mg DAILY JASON Administration Phenytoin Sodium 100 mg 10/16/18 06:00 Dilantin - PO TID JASON Discontinue Phenytoin Rosuvastatin Calcium 10 mg 10/16/18 22:00 10/16/18 21:19 Crestor - PO 10 mg HS JASON Administration Home Medications Medication Instructions Recorded Tamsulosin HCl [Flomax] 0.4 mg PO BID 08/30/17 Aspirin Coated [Ecotrin -] 81 mg PO DAILY tablet.ec 09/02/17 Phenytoin Na Extended [Dilantin -] 100 mg PO TID #100 capsule 09/02/17 Oxybutynin Chloride [Oxybutynin 10 mg PO DAILY 10/16/18 Chloride ER] Rosuvastatin Calcium [Crestor] 10 mg PO DAILY 10/16/18 10/15/18: Head CT: negative for acute change. chronic small vessel ischemia 10/15/18: EKG: atrial paced, LBBB 10/16/18: Carotid duplex: negative. ASSESSMENT AND PLAN: Patient is a 83yo male with PMHx of HLD, sz disorder, BPH, pacemaker placement , [employer] 07/02, who presented to the ED c/o lightheadedness and instability while walking for the past day. #Phenytoin toxicity with Leukopenia , level still high, will monitor the level, once below 20 will start the patient on Keppra 750mg bid, discussed with neurologist , will continue to monitor the patient, PT for gait instability most likely due to dilantin toxicity and medications such as BPH meds. # Acute UTI, on IV Rocephin continue # Leukopenia most likely due to dilantin Toxicity , will discontinue, will start the patient on keppra once dilantin below20 and patient is asymptomatic #BPH: Flomax, Proscar is on hold for possible causing gait instability/ lightheadedness, f/u with urology Dr. Burton #HLD will add lipitor 10mg po daily #Sz disorder supratherapeutic will discontinue dilantin, and start the patient on keppra 750mg 2x per day as per neurology desmond Headley precautions DVT PPX: lovenox
[2018-10-17] MEDS ORDERED: DEXTROSE 5%-WATER - 50 ML IVPB ONE (10:06)
[2018-10-17] MEDS ORDERED: cefTRIAXone SODIUM 1 GM VIAL ONE (10:06)
[2018-10-17] MEDS: ENOXAPARIN NA (PORCINE) 40 MG/0.4 ML DISP.SYRIN SQ SCH (10:18)
[2018-10-17] MEDS: metoPROLOL SUCCINATE 25 MG TAB.SR.24H (FP) PO SCH (10:19)
[2018-10-17] MEDS: ASPIRIN COATED 81 MG TABLET.EC PO SCH (10:19)
[2018-10-17] MEDS: CEFTRIAXONE 1 GM in DEXTROSE 5%-WATER - 50 ML IVPB SCH (10:20)
--- NOTE | 2018-10-17 12:03 | PN ---
Progress Note (short form) - Note Progress Note: Neurology HISTORY OF PRESENT ILLNESS: 83 y/o M with PMH HLD, sz disorder, BPH, pacemaker placement - [employer] 07/02, who presented to the ED c/o lightheadedness and instability while ambulating for the past day. States that he felt "very weak and bad." Reportedly episode of "shaking" but no fall, LOC, tongue biting, or urinary or bowel incontinence. Reported that he continued to feel unwell, thus his son and fiance brought him to the ED for further evaluation. During this time, pt also endorses a generalized, bifrontal SANTIAGO. Denied recent illnesses, SANTIAGO, fever, chills, SOB, chest pain or pressure, or changes in urinary or bowel function. No recent medication changes. Pt lives with his son and fiance. At baseline, ambulates on own. Of note, pt was hospitalized here in 2017 with similar sx/presyncope, underwent ECHO which revealed moderate asymmetric LVH, no wall motion abnormalities, grade I diastolic dysfunction, LA severe dilation and severe LA. EF WNL as per cardio. On this admission, CT head was completed and did not show any acute changes. Carotid Dopplers also reviewed and without hemodynamically significant stenosis. The patient reports no complaints at this time and is at baseline. He was in the process of having a repeat echo at bedside. Of note, Dilantin level of 37.9 on admission, still elevated this morning. Discussed with hospitalist and patient also neutropenic and with concern for intermediate card tender dilantin use, therefore agreed to switch to keppra 750mg twice daily once dilantin level below 20. Allergies No Known Allergies Allergy (Verified 10/15/18 17:37) Active Medications Aspirin (Ecotrin -) 81 mg PO DAILY [facility] Last Admin: 10/17/18 10:19 Dose: 81 mg Enoxaparin Sodium (Lovenox -) 40 mg SQ DAILY [facility] Last Admin: 10/17/18 10:18 Dose: 40 mg Ceftriaxone Sodium 1 gm/ (Dextrose) 50 mls @ 100 mls/hr IVPB DAILY [facility] Last Admin: 10/17/18 10:20 Dose: 100 mls/hr Metoprolol Succinate (Toprol Xl -) 12.5 mg PO DAILY [facility] Last Admin: 10/17/18 10:19 Dose: 12.5 mg Rosuvastatin Calcium (Crestor -) 10 mg PO HS [facility] Last Admin: 10/16/18 21:19 Dose: 10 mg PHYSICAL EXAMINATION Vital Signs Period Temp Pulse Resp BP Sys/Mckeon Pulse Ox Last 24 Hr 97.4 F-98 F 60-61 14-20 101-119/61-72 96-97 GENERAL: Resting comfortably in bed. Pleasant. Thin , AAOx2 (name, [facility]) in no acute distress. HEAD: Normal with no signs of trauma. EYES: Pupils equal, round and reactive to light, extraocular movements intact, sclera anicteric, conjunctiva clear. EARS, NOSE, THROAT: Ears normal, nares patent, oropharynx clear without exudates. Moist mucous membranes. NECK: Normal range of motion, supple . no cervical lymphadenopathy . LUNGS: Breath sounds equal, clear to auscultation bilaterally. No wheezes, and no crackles. No accessory muscle use. HEART: +paced rate and rhythm, normal S1 and S2 without murmur, rub or gallop. ABDOMEN: Soft, nontender, not distended, normoactive bowel sounds, no guarding, no rebound. LOWER EXTREMITIES: 2+ pt pulses, warm, well-perfused. No calf tenderness. No peripheral edema. NEUROLOGICAL: Cranial nerves II-XII intact. Sensation intact. No dysmetria . 5/ 5 motor strength UE, LE. Gait: aantalgic and favors the left PSYCHIATRIC: Cooperative. SKIN: Warm, dry CBCD WBC 2.3 K/mm3 (4.0-10.0) L 10/17/18 05:10 RBC 3.66 M/mm3 (4.00-5.60) L 10/17/18 05:10 Hgb 11.9 GM/dL (11.7-16.9) 10/17/18 05:10 Hct 34.4 % (35.4-49) L 10/17/18 05:10 MCV 94.0 fl (80-96) 10/17/18 05:10 MCHC 34.7 g/dl (32.0-35.9) 10/17/18 05:10 RDW 13.6 % (11.9-15.9) 10/17/18 05:10 Plt Count 157 K/MM3 (134-434) 10/17/18 05:10 MPV 7.8 fl (7.5-11.1) 10/17/18 05:10 CMP Sodium 138 mmol/L (136-145) 10/17/18 05:10 Potassium 4.3 mmol/L (3.5-5.1) 10/17/18 05:10 Chloride 105 mmol/L (98-107) 10/17/18 05:10 Carbon Dioxide 30 mmol/L (21-32) 10/17/18 05:10 Anion Gap 3 MMOL/L (8-16) L 10/17/18 05:10 BUN 12 mg/dL (7-18) 10/17/18 05:10 Creatinine 0.9 mg/dL (0.55-1.3) 10/17/18 05:10 Creat Clearance w eGFR > 60 (>60) 10/17/18 05:10 Random Glucose 83 mg/dL (74-106) 10/17/18 05:10 Calcium 7.9 mg/dL (8.5-10.1) L 10/17/18 05:10 Total Bilirubin 0.3 mg/dL (0.2-1) 10/15/18 18:54 AST 18 U/L (15-37) 10/15/18 18:54 ALT 19 U/L (13-61) 10/15/18 18:54 Alkaline Phosphatase 100 U/L (45-117) 10/15/18 18:54 Total Protein 7.2 g/dl (6.4-8.2) 10/15/18 18:54 Albumin 3.6 g/dl (3.4-5.0) 10/15/18 18:54 CARDIAC ENZYMES Creatine Kinase 111 U/L (26-308) 10/15/18 18:54 Troponin I < 0.02 ng/ml (0.00-0.05) 10/15/18 18:54 Past reports ECHO 08/2017: moderate asymmetric LVH. LV systolic function normal. no regional wall motion abnormalities. EA reversal suggests impaired relaxation with grade 1 diastolic dysfunction with elevated filling pressure. pacemaker event in RV. LA severely dilated, moderate MR, severe pulmonic regurg. Current visit 10/15/18: Head CT: negative for acute change. chronic small vessel ischemia 10/15/18: EKG: atrial paced, LBBB 10/16/18: Carotid duplex: no hemodynamically significant stenosis ASSESSMENT/PLAN: 83 y/o M with PMH HLD, sz disorder, BPH, pacemaker placement - [employer] 07/02, who presented to the ED c/o lightheadedness and instability while walking for the past day. Does not seem to be due to seizure more likely secondary to Dilantin toxicity. Hold Dilantin, repeat daily Dilantin level, when level reaches below 20, can restart medication at home dose of [address] head negative, ccannot have MRI due to pacemaker. Cardiology follow-up recommended. monitor for seizure activity though unlikely with Dilantin supratherapeutic. Of note, Dilantin level of 37.9 on admission, still elevated this morning. Discussed with hospitalist and patient also neutropenic and with concern for intermediate card tender dilantin use, therefore agreed to switch to keppra 750mg twice daily once dilantin level below 20. Will not be on Dilantin. Patient also with urinary tract infection, continue antibiotics. Maintain adequate hydration , fall precautions. Physical therapy recommended.
--- NOTE | 2018-10-17 12:24 | PN ---
Progress Note, [employer] - Note Progress Note: Selected Entries 10/16/18 10/16/18 10/16/18 02:43 06:00 09:38 Breakfast 100% Diet Tolerated Lunch Supper Temperature 97.3 F L 97.6 F 10/16/18 10/16/18 10/16/18 10:00 14:52 18:00 Breakfast Diet Tolerated Lunch 25% Supper 100% Temperature 97.9 F 97.4 F L 97.8 F 10/16/18 10/17/18 10/17/18 22:00 02:00 06:00 Breakfast Diet Tolerated Lunch Supper Temperature 97.9 F 97.7 F 98 F 10/17/18 09:15 Breakfast 75% Diet Tolerated Well Lunch Supper Temperature Laboratory Tests 10/17/18 05:10 WBC 2.3 L Tolerating diet without difficulty reported or observed.
--- NOTE | 2018-10-17 12:36 | PN ---
Physical Exam: SUBJECTIVE: Patient seen and examined at bedside. No acute events overnight. Denies cp, sob, abd pain. Feels well. OBJECTIVE: Last Vital Signs Temp Pulse Resp BP Pulse Ox 98.6 F 81 18 147/61 96 10/17/18 10:00 10/17/18 10:00 10/17/18 10:00 10/17/18 10:00 10/17/18 09:00 GENERAL: Resting comfortably in bed. Pleasant. Thin, AAOx2 (name, hospital) in no acute distress. HEENT: AT/NC. EOMI. PENNY. Dry mucus membranes. NECK: Normal range of motion, supple. LUNGS: CTA B/L. No wheezes/crackles noted. No accessory muscle use. HEART: +paced rate and rhythm, tachycardic, normal S1 and S2 without murmur, rub or gallop. ABDOMEN: Soft, nontender, not distended, normoactive bowel sounds, no guarding, no rebound. LOWER EXTREMITIES: 2+ pt pulses, warm, well-perfused. No calf tenderness. No peripheral edema. NEUROLOGICAL: Cranial nerves II-XII intact. Sensation intact. No dysmetria . 5/ 5 motor strength UE, LE. Gait: favors L side PSYCHIATRIC: Cooperative. SKIN: Warm, dry. CBC, BMP 10/17/18 05:10 10/17/18 05:10 Active Medications Aspirin (Ecotrin -) 81 mg PO DAILY [facility] Last Admin: 10/17/18 10:19 Dose: 81 mg Enoxaparin Sodium (Lovenox -) 40 mg SQ DAILY [facility] Last Admin: 10/17/18 10:18 Dose: 40 mg Ceftriaxone Sodium 1 gm/ (Dextrose) 50 mls @ 100 mls/hr IVPB DAILY [facility] Last Admin: 10/17/18 10:20 Dose: 100 mls/hr Metoprolol Succinate (Toprol Xl -) 12.5 mg PO DAILY [facility] Last Admin: 10/17/18 10:19 Dose: 12.5 mg Rosuvastatin Calcium (Crestor -) 10 mg PO HS [facility] Last Admin: 10/16/18 21:19 Dose: 10 mg IMAGING: Past reports ECHO 08/2017: moderate asymmetric LVH. LV systolic function normal. no regional wall motion abnormalities. EA reversal suggests impaired relaxation with grade 1 diastolic dysfunction with elevated filling pressure. pacemaker event in RV. LA severely dilated, moderate MR, severe pulmonic regurg. Current visit 10/15/18: Head CT: negative for acute change. chronic small vessel ischemia 10/15/18: EKG: atrial paced, LBBB 10/16/18: Carotid duplex: Mild atherosclerotic disease w/ no evid. of HD significant stenosis. 10/16/18: LA mod dilated. Mild MR. Mild TR. Mild AR. Mod. pulmonic valvular regurg. Mod aortic root regurg. ASSESSMENT/PLAN: 83 y/o M with pmhx HLD, sz disorder, BPH, pacemaker placement - [employer] 07/02 , who presented to the ED c/o lightheadedness and instability while walking for the past day. #Lightheadedness, gait instability -likely 2/2 Dilantin toxicity -Echo and carotid duplex noted above. -Per cardio, cont ASA 81 QD, resume Crestor 10 QD, Toprol XL 12.5 QD. Device check as outpatient. -Per neuro, hold Dilantin, repeat daily Dilantin level, when level reaches below 20, can restart medication at home dose of 100 three times a day -PT/fall precautions/seizure precautions #UTI -U/A showed 1+ LE, WBC 35 -cont Ceftriaxone 1gm QD IVPB (started 10/15/18) #BPH -Hold Flomax, Proscar for now, as may be contributing to gait instability -Per uro, Flomax not though to be the cause of pt's dizziness, but if symptoms persist, recommend to give Silodosin (Rapaflo) 4 mg instead however this change should be done outpatient. Also recommend to d/c Oxybutynin, however if it is not replaced, pt has a high change of retaining again. For now, can do a PVR while off Flomax and if less than 50-60 mL, pt could remain off Flomax for longer time and not be placed on Silodosin. Recommend continuing Finasteride. #Leukopenia w/ neutropenia -likely 2/2 Dilantin toxicity; cont to hold Dilantin -repeat CBC with diff #HLD -Per cardio, cont Crestor 10 QD #Seizure disorder -Hold Dilantin as blood level is supratherapeutic -sz precautions -Per neuro, check daily Dilantin level until below 20. Will switch pt's home med Dilantin to Keppra instead. Per neuro, 750 BID. #F/E/N -no IVF indicated at this time -continue to follow lytes -Sodium-controlled diet #PPX DVT: lovenox Dispo -inpatient tele Visit type - Emergency Visit Emergency Visit: Yes ED Registration Date: 10/17/18 Care time: The patient presented to the Emergency Department on the above date and was hospitalized for further evaluation of their emergent condition. - New Patient This patient is new to me today: No - Critical Care Critical Care patient: No
--- NOTE | 2018-10-17 13:29 | PN ---
Progress Note, Physician History of Present Illness: Lightheadedness, dizziness, generalized weakness and instability while ambulating resolving. Telemetry shows AV pacing - Current Medication List Current Medications: Active Medications Aspirin (Ecotrin -) 81 mg PO DAILY [facility] Last Admin: 10/17/18 10:19 Dose: 81 mg Enoxaparin Sodium (Lovenox -) 40 mg SQ DAILY [facility] Last Admin: 10/17/18 10:18 Dose: 40 mg Ceftriaxone Sodium 1 gm/ (Dextrose) 50 mls @ 100 mls/hr IVPB DAILY [facility] Last Admin: 10/17/18 10:20 Dose: 100 mls/hr Metoprolol Succinate (Toprol Xl -) 12.5 mg PO DAILY [facility] Last Admin: 10/17/18 10:19 Dose: 12.5 mg Rosuvastatin Calcium (Crestor -) 10 mg PO HS [facility] Last Admin: 10/16/18 21:19 Dose: 10 mg - Objective Vital Signs: Vital Signs Temperature 98.6 F 10/17/18 10:00 Pulse Rate 81 10/17/18 10:00 Respiratory Rate 18 10/17/18 10:00 Blood Pressure 147/61 10/17/18 10:00 O2 Sat by Pulse Oximetry (%) 96 10/17/18 09:00 Constitutional: Yes: No Distress, Calm, Thin Neck: Yes: Supple Cardiovascular: Yes: Regular Rate and Rhythm Respiratory: Yes: Regular, CTA Bilaterally Gastrointestinal: Yes: Normal Bowel Sounds, Soft Edema: No Labs: CBC, BMP 10/17/18 05:10 10/17/18 05:10 - ....Imaging EKG: Report Reviewed (Tele: AV pacing) Problem List - Problems (1) Diastolic dysfunction without heart failure Code(s): I51.89 - OTHER ILL-DEFINED HEART DISEASES (2) Abnormal cardiovascular function study Code(s): R94.30 - ABNORMAL RESULT OF CARDIOVASCULAR FUNCTION STUDY, UNSP (3) Chest pain Code(s): R07.9 - CHEST PAIN, UNSPECIFIED Qualifiers: Chest pain type: unspecified Qualified Code(s): R07.9 - Chest pain, unspecified (4) Lightheadedness Code(s): R42 - DIZZINESS AND GIDDINESS (5) Hypercholesterolemia Code(s): E78.00 - PURE HYPERCHOLESTEROLEMIA, UNSPECIFIED (6) Phenytoin toxicity Code(s): T42.0X1A - POISONING BY HYDANTOIN DERIVATIVES, ACCIDENTAL, INIT Qualifiers: Encounter type: initial encounter (7) Presence of permanent cardiac pacemaker Code(s): Z95.0 - PRESENCE OF CARDIAC PACEMAKER (8) Sick sinus syndrome Code(s): I49.5 - SICK SINUS SYNDROME Assessment/Plan Past reports ECHO 08/2017: moderate asymmetric LVH. LV systolic function normal. no regional wall motion abnormalities. EA reversal suggests impaired relaxation with grade 1 diastolic dysfunction with elevated filling pressure. pacemaker event in RV. LA severely dilated, moderate MR, severe pulmonic regurg. 01/31/2018 MPI: Small zone mild inferobasal ischemia, LVEF 64% Current visit 10/15/18: Head CT: negative for acute change. chronic small vessel ischemia 10/15/18: EKG: A-V paced 10/16/18: Carotid duplex: no hemodynamically significant stenosis 1. Near syncope and gait instability due to Dilantin toxicity 2. Sick sinus syndrome s/p dual chamber pacemaker implantation ([employer]ron[employer]) 3. Hypercholesterolemia 4. Seizure d/o, unlikely recurrence 5. UTI 6. Chest pain syndrome with mildly abnormal MPI 7. Diastolic dysfunction - euvolemic 8. Cerebrovascular disease PLAN: 1. ASA 81 qd, Crestor 10 qd, Toprol XL 12.5 qd 2. Device check as outpatient 3. Complete empiric abx course 4. PT for gait training, resume Dilantin once serum levels decrease to acceptable levels
[2018-10-17] MEDS: ROSUVASTATIN CA 10 MG TABLET (FP) PO SCH (22:38)
[2018-10-18 06:00] VITALS: TEMP 97.9
[2018-10-18] MEDS ORDERED: ACETAMINOPHEN 325 MG TABLET (FP) PO PRN (06:31)
[2018-10-18 08:00] LABS: BASO % 0.4 % (0-2.0); EOS % 1.9 % (0-4.5); HEMATOCRIT 37.2 % (35.4-49); LYMPH % 47.8 % (8-40); MCH 33.1 pg (25.7-33.7); MCHC 35.1 g/dl (32.0-35.9); MEAN CELL VOLUME 94.4 fl (80-96); MEAN PLT VOLUME 8.3 fl (7.5-11.1); MONO % 14.1 % (3.8-10.2); NEUT % 35.8 % (42.8-82.8); PLATELET COUNT 159 K/MM3 (134-434); RBC 3.94 M/mm3 (4.00-5.60); RDW 13.5 % (11.9-15.9); WHITE BLOOD COUNT 2.2 K/mm3 (4.0-10.0)
[2018-10-18 08:27] LABS: ANION GAP 4 MMOL/L (8-16); BLOOD UREA NITROGEN 12 mg/dL (7-18); CALCIUM 8.2 mg/dL (8.5-10.1); CHLORIDE 105 mmol/L (98-107); CO2 31 mmol/L (21-32); CREATININE 0.8 mg/dL (0.55-1.3); GLUCOSE,RANDOM 80 mg/dL (74-106); POTASSIUM 4.4 mmol/L (3.5-5.1); SODIUM 139 mmol/L (136-145)
--- NOTE | 2018-10-18 09:04 | DS ---
Physical Exam: SUBJECTIVE: Patient seen and examined Patient is feeling better wants to go home. No further dizziness, or lightheadedness. OBJECTIVE: Vital Signs Temperature 97.9 F 10/18/18 05:59 Pulse Rate 64 10/18/18 05:59 Respiratory Rate 18 10/18/18 05:59 Blood Pressure 134/79 10/18/18 05:59 O2 Sat by Pulse Oximetry (%) 97 10/18/18 04:00 PHYSICAL EXAM GENERAL: The patient is awake, alert, and fully oriented, in no acute distress. HEAD: Normal with no signs of trauma. EYES: PERRL, extraocular movements intact, sclera anicteric, conjunctiva clear. ENT: Ears normal, oropharynx clear without exudates, moist mucous membranes. NECK: Trachea midline, full range of motion, supple. LUNGS: Breath sounds equal, clear to auscultation bilaterally, no wheezes, no crackles, no accessory muscle use. HEART: Regular rate and rhythm, S1, S2 without murmur, rub or gallop. ABDOMEN: Soft, nontender, nondistended, normoactive bowel sounds, no guarding, no rebound, no hepatosplenomegaly. EXTREMITIES: 2+ pulses, warm, well-perfused, no edema. NEUROLOGICAL: Cranial nerves II through XII grossly intact. Normal speech. PSYCH: Normal mood, normal affect. SKIN: Warm, dry, normal turgor, no rashes or lesions noted. LABS Laboratory Results - last 24 hr 10/18/18 10/18/18 10/18/18 06:00 06:30 06:30 WBC 2.2 L RBC 3.94 L Hgb 13.0 Hct 37.2 MCV 94.4 MCH 33.1 MCHC 35.1 RDW 13.5 Plt Count 159 MPV 8.3 Absolute Neuts (auto) 0.8 L Neutrophils % 35.8 L D Lymphocytes % 47.8 H D Monocytes % 14.1 H Eosinophils % 1.9 Basophils % 0.4 Nucleated RBC % 0 Sodium 139 Potassium 4.4 Chloride 105 Carbon Dioxide 31 Anion Gap 4 L BUN 12 Creatinine 0.8 Creat Clearance w eGFR > 60 Random Glucose 80 Calcium 8.2 L Phenytoin 23.5 H Current Medications Generic Name Dose Route Start Last Admin Trade Name Freq PRN Reason Stop Dose Admin Acetaminophen 650 mg 10/18/18 06:31 Tylenol - PO Q6H PRN HEADACHE Aspirin 81 mg 10/16/18 10:00 10/17/18 10:19 Ecotrin - PO 81 mg DAILY [facility] Administration Enoxaparin Sodium 40 mg 10/16/18 10:00 10/17/18 10:18 Lovenox - SQ 40 mg DAILY [facility] Administration Ceftriaxone Sodium 1 gm/ 50 mls @ 100 mls/hr 10/16/18 05:30 10/17/18 10:20 Dextrose IVPB 100 mls/hr DAILY [facility] Administration Metoprolol Succinate 12.5 mg 10/16/18 12:15 10/17/18 10:19 Toprol Xl - PO 12.5 mg DAILY [facility] Administration Rosuvastatin Calcium 10 mg 10/16/18 22:00 10/17/18 22:38 Crestor - PO 10 mg HS [facility] Administration Home Medications Medication Instructions Recorded RX: Tamsulosin HCl [Flomax] 0.4 mg PO BID 08/30/17 RX: Aspirin Coated [Ecotrin -] 81 mg PO DAILY tablet.ec 09/02/17 RX: Rosuvastatin Calcium [Crestor] 10 mg PO DAILY 10/16/18 Metoprolol Succinate [Toprol Xl] 12.5 mg PO DAILY #30 tab.er.24h 10/18/18 levETIRAcetam [Keppra -] 500 mg PO BID #60 tablet 10/18/18 HOSPITAL COURSE: Date of Admission:10/17/18 Date of Discharge: 10/18/18 10/15/18: Head CT: negative for acute change. chronic small vessel ischemia 10/15/18: EKG: atrial paced, LBBB 10/16/18: Carotid duplex: negative. Patient is a 83yo male with PMHx of HLD, sz disorder, BPH, pacemaker placement , [employer] 07/02, who presented to the ED c/o lightheadedness and instability while walking for the past day. # Acute Phenytoin toxicity with Leukopenia , level is trending down , will discontinue Phenytoin for now, continue with Keppra 500mg po bid, repeat cbc in a week ,follow with within a week period. # Acute UTI, on IV Rocephin received 3 days of rocephin. # Leukopenia most likely due to dilantin Toxicity, will discontinue, will start the patient on keppra , discontinued. #BPH: Flomax, Proscar is on hold for possible causing gait instability/ lightheadedness, f/u with urology Dr. Burton, will discontinue oxycontin. #HLD will add lipitor 10mg po daily #Sz disorder will continue keppra , discontinue dilantin, and start the patient on keppra 500mg 2x per day as per neurology Dr. Barkley, desmond precautions DVT PPX: lovenox discharge patient home. Minutes to complete discharge: 35 Discharge Summary Reason For Visit: LIGHTHEADEDNESS Current Active Problems Abnormal cardiovascular function study (Acute) Chest pain (Acute) Diastolic dysfunction without heart failure (Acute) Lightheadedness (Acute) Condition: Stable - Instructions Diet, Activity, Other Instructions: Please return to the emergency department with any new or worsening symptoms or concerns. Please follow up with your primary care physician within 72 hours. follow with the neurologist within a week period. DO NOT TAKE THE DILANTIN (PHENYTOIN) youe seizure medication. Instead you are prescribed KEPPRA 500mg orally 2x per day. NEED to repeat CBC to check whether your white count is improving. follow with within a week period. Referrals: Jonatan Barkley MD [Staff Physician] - 1 Week Disposition: HOME - Home Medications Comprehensive Discharge Medication List: Ambulatory Orders Tamsulosin HCl [Flomax] 0.4 mg PO BID 08/30/17 Aspirin Coated [Ecotrin -] 81 mg PO DAILY tablet.ec 09/02/17 Phenytoin Na Extended [Dilantin -] 100 mg PO TID #100 capsule 09/02/17 Oxybutynin Chloride [Oxybutynin Chloride ER] 10 mg PO DAILY 10/16/18 Rosuvastatin Calcium [Crestor] 10 mg PO DAILY 10/16/18 This patient is new to me today: No Emergency Visit: Yes ED Registration Date: 10/17/18 Care time: The patient presented to the Emergency Department on the above date and was hospitalized for further evaluation of their emergent condition. Critical Care patient: No - Discharge Referral Referred to [facility] No
[2018-10-18] MEDS ORDERED: PT OWN MED DRAWER 7, Y5N ONE (09:42)
[2018-10-18] MEDS: ASPIRIN COATED 81 MG TABLET.EC PO SCH (09:44)
[2018-10-18] MEDS: metoPROLOL SUCCINATE 25 MG TAB.SR.24H (FP) PO SCH (09:44)
[2018-10-18] MEDS: ENOXAPARIN NA (PORCINE) 40 MG/0.4 ML DISP.SYRIN SQ SCH (09:53)
[2018-10-18] MEDS: CEFTRIAXONE 1 GM in DEXTROSE 5%-WATER - 50 ML IVPB SCH (09:53)
[2018-10-18 09:56] VITALS: BP 118/72; PULSE 68
== END 2018-10-18 10:27 | disposition home or self-care (01) | DRG 815 ==
LOC: JER 17:04 → JERBED 20:47 → J4S 10-16 02:26 → OBSVTOIN 10-17 08:02
PROVIDERS: ADMIT Internal Medicine; ATTEND Internal Medicine
DX: D72.819 Decreased white blood cell count, unspecified (principal); N39.0 Urinary tract infection, site not specified; T42.0X5A Adverse effect of hydantoin derivatives, initial encounter; R42 Dizziness and giddiness; R26.81 Unsteadiness on feet; R55 Syncope and collapse; R07.9 Chest pain, unspecified; E78.5 Hyperlipidemia, unspecified; G40.909 Epilepsy, unspecified, not intractable, without status epilepticus; N40.0 Benign prostatic hyperplasia without lower urinary tract symptoms; Z95.0 Presence of cardiac pacemaker; I44.7 Left bundle-branch block, unspecified
CPT/HCPCS: 36415; 70450-TC; 80048; 80053; 80061; 80185; 81003; 81015; 82550; 82962; 83036; 83721; 83735; 84100; 84484; 85025; 85027; 93005; 93010; 93306-TC; 93880-TC; 97116-GP; 97161-GP; 99284-25; G0378

== ENCOUNTER 2020-12-05 05:43 | Day surgery (SDC) | payer OTHER ==
[2020-12-05 12:59] VITALS: TEMP 98.1
[2020-12-05] MEDS ORDERED: LIDOCAINE VISCOUS 2% ORAL/TOP 20 ML UNIT-DOSE CUP ONE (13:29)
[2020-12-05] MEDS ORDERED: LIDOCAINE VISCOUS 2% ORAL/TOP 20 ML UNIT-DOSE CUP MM ONE ×2 (13:50→13:52)
[2020-12-05 15:25] VITALS: BP 130/87; PULSE 60
== END 2020-12-05 15:47 | disposition home or self-care (01) ==
LOC: JASU-ENDO 05:43 → MERGE 05:43 → JASU-ENDO 15:47
PROVIDERS: ATTEND Internal Medicine Cardiovascular Disease
PROC: 5A2204Z Restoration of Cardiac Rhythm, Single (ICD-10-PCS; 2020-12-05)
PROC: B246ZZ4 Ultrasonography of Right and Left Heart, Transesophageal (ICD-10-PCS; principal; 2020-12-05 13:00)
DX: I49.5 Sick sinus syndrome (principal); I48.92 Unspecified atrial flutter; I34.0 Nonrheumatic mitral (valve) insufficiency; Z95.0 Presence of cardiac pacemaker; E78.00 Pure hypercholesterolemia, unspecified; Z79.01 Long term (current) use of anticoagulants; I25.10 Atherosclerotic heart disease of native coronary artery without angina pectoris
CPT/HCPCS: 93005; 93010; 93312; 93325